=== PATIENT | female | born 1970 | race American Indian/Alaskan Native ===

== ENCOUNTER 2024-07-13 07:58 | Outpatient (AMB) | payer OTHER, SELFPAY ==
--- NOTE | 2024-07-12 15:51 | A.OFFVIS_ITS ---
Vital Signs 07/13/24 08:04 Height 5 ft 2 in Weight 147 lb 14.883 oz BMI 27.1 BP 120/70 Blood Pressure Location Lt brachial Position Sitting Pulse 98 Pulse Source Pulse Oximeter Pulse Oximetry (%) 98 Oxygen Delivery Method Room Air Intake Visit Reasons: RA/MR Recmerissa/CM Intake Note: Patient presents? today for RA follow up, she was last seen in the office on 11/24/[address] Campos. Patient is requesting refill of Sulfasalazine today. Allergies Penicillins Allergy (Mild, Verified 07/12/24 16:01) Rash Medication List - Last Reconciled 07/13/24 by Jairo Campos MD calcium carbonate 600 mg PO DAILY [[facility] Vitamin 3 PO] cyclobenzaprine 5 mg PO BEDTIME docusate sodium 100 mg PO DAILY gabapentin 300 mg PO DAILY meloxicam 15 mg PO DAILY sulfasalazine 0.5 grams PO DAILY vitamin R43-omdhl acid 2,500-400 mcg tabs PO vitamin E-aloe vera ea topical wheat dextrin-calc glucon,lact 3 gram-300 mg/8.8 gram grams PO HPI HPI RA/MR Amina/CM: Details: No recent flares. Pain in soles of both feet started 1.5 weeks ago. Mother was in hospital last week and she was standing for prolonged periods of time. She feels pain when standing and walking. No recent infection. No recent fractures. Medications reviewed with patient. [facility] Medical History (Updated 07/13/24 @ 08:39 by Jairo Campos MD) Malignant glomus tumor Cervical carcinoma Colonic polyp Surgical History (Updated 07/12/24 @ 16:09 by Danitza Ridley CMA) History of partial hysterectomy Family History (Updated 07/12/24 @ 16:11 by Danitza Ridley CMA) Mother Osteoporosis Breast cancer Other Brainstem stroke syndrome Social History (Updated 07/12/24 @ 16:03 by Danitza Ridley CMA) Patient Tobacco Use Status: Former Tobacco user Review of Systems Const All systems reviewed & are unremarkable except as noted in HPI and below Physical Exam Vital Signs: Last Vital Signs Pulse 98 07/13/24 08:04 BP 120/70 07/13/24 08:04 Pulse Ox 98 07/13/24 08:04 Oxygen Delivery Method Room Air 07/13/24 08:04 BMI result Body Mass Index 27.1 Const Other: General: Comfortable CVS: RRR Respiratory: clear to auscultation bilaterally. Good respiratory effort Skin: No lesions seen MSK: Tender to palpate right 1st MTP. Bunions noted bilateral. Tender to palpate right dorsal midfoot with bony hypertrophy palpated. No MTP tenderness on left foot. No synovitis present of any joints. Good range of motion of upper extremity and lower extremity. Assessment & Plan Assessment & Plan (1) Rheumatoid arthritis: Comment: History seropositivity with positive rheumatoid factor 46 and anti CCP positive greater than 250. Previously treated with methotrexate 07/12/2024 to 10/12/2025 discontinued due to transaminitis. She has been on sulfasalazine from 10/12/2015 to present. In remission on sulfasalazine. Code(s): M06.9 - Rheumatoid arthritis, unspecified Category: Medical Qualifiers: Rheumatoid arthritis location: unspecified site Rheumatoid factor presence: with rheumatoid factor Qualified Code(s): M05.9 - Rheumatoid arthritis with rheumatoid factor, unspecified Plan: Labs for disease and drug monitoring ordered. She will need refill of sulfasalazine after lab results are back. We will send refill of sulfasalazine 500 mg twice a day Return to clinic in 3 months Immunizations are up-to-date with flu shot. She declined getting COVID-19 booster. (2) Other intermediate (current) drug therapy: Code(s): Z79.899 - Other intermediate (current) drug therapy Category: Medical Plan: See above (3) Foot pain: Comment: She has pain from bunions contributing. I suspect she has osteoarthritis affecting her midfoot contributed dorsal midfoot pain. We will obtain x-ray for further evaluation. Code(s): M79.673 - Pain in unspecified foot Category: Medical Qualifiers: Laterality: bilateral Qualified Code(s): M79.671 - Pain in right foot; M79.672 - Pain in left foot Plan: X-ray bilateral feet ordered She will take ibuprofen 600 mg today after lunch then another dose in the evening if needed if she has persistent pain. Continue to wear for supportive footwear (4) Osteopenia: Comment: On bone density 03/11/2015 with lowest T-score -1.1. She has previously been tasha ated with alendronate from 03/11/2015 to 03/11/2017. Bone density is overdue. Code(s): M85.80 - Other specified disorders of bone density and structure, unspecified site Category: Medical Qualifiers: Osteopenia location: unspecified Qualified Code(s): M85.80 - Other specified disorders of bone density and structure, unspecified site Plan: Bone density ordered Continue OTC calcium 600 mg daily and vitamin-D (5) Bunion of unspecified foot: Code(s): M21.619 - Bunion of unspecified foot Category: Medical Plan: See above Plan . Orders: Orders C Reactive Protein Today Z79.899 - Other terminal carman (current) drug therapy Complete Blood Count Auto Diff Today Z79.899 - Other terminal carman (current) drug therapy Creatinine Today Z79.899 - Other intermediate (current) drug therapy XR DEXA axial skeleton Today M85.80 - Other specified disorders of bone density and structure, unspecified site Calcium Today M85.80 - Other specified disorders of bone density and structure, unspecified site Albumin Level Today M85.80 - Other specified disorders of bone density and structure, unspecified site Vitamin D 25-OH Total Today M85.80 - Other specified disorders of bone density and structure, unspecified site Alanine Aminotransferase Today M06.9 - Rheumatoid arthritis, unspecified, M79.673 - Pain in unspecified foot, M85.80 - Other specified disorders of bone density and structure, unspecified site, Z79.899 - Other intermediate (current) drug therapy Aspartate Amino Transferase Today M06.9 - Rheumatoid arthritis, unspecified, M79.673 - Pain in unspecified foot, M85.80 - Other specified disorders of bone density and structure, unspecified site, Z79.899 - Other terminal carman (current) drug therapy Erythrocyte Sedimentation Rate Today Z79.899 - Other intermediate (current) drug therapy Hepatitis B,C Profile Today Z79.899 - Other terminal carman (current) drug therapy T Spot TB Today Z79.899 - Other terminal carman (current) drug therapy XR foot LT min 3V Today M79.673 - Pain in unspecified foot XR foot RT min 3V Today Z79.899 - Other intermediate (current) drug therapy Coding Level of Care Code Est Pt Level 5 (67099) Diagnoses Rheumatoid arthritis with positive rheumatoid factor, involving unspecified site M05.9 Rheumatoid arthritis location: unspecified site Rheumatoid factor presence: with rheumatoid factor Other intermediate (current) drug therapy Z79.899 Pain in both feet M79.671; M79.672 Laterality: bilateral Osteopenia, unspecified location M85.80 Osteopenia location: unspecified Bunion of unspecified foot M21.619
[2024-07-13 08:04] VITALS: BP 120/70; PULSE 98; O2SAT 98; BMI 27.1
== END 2024-07-13 08:34 | disposition home or self-care (01) ==
PROVIDERS: PCP Internal Medicine; Visit Provider Internal Medicine Rheumatology
DX: M05.9 Rheumatoid arthritis with rheumatoid factor, unspecified (principal); Z79.899 Other long term (current) drug therapy; M79.671 Pain in right foot; M79.672 Pain in left foot; M85.80 Other specified disorders of bone density and structure, unspecified site; M21.619 Bunion of unspecified foot
CPT/HCPCS: 99214

== ENCOUNTER 2024-07-19 13:11 | Outpatient (REF) | payer OTHER, SELFPAY ==
[2024-07-19 16:15] LABS: MANUAL DIFF FLAG NO
[2024-07-19 16:21] LABS: Basophils Percent Auto 0.5 % (0-2); Eosinophils Absolute Auto 0.2 X10*3/uL (0.0-0.4); Eosinophils Percent Auto 3.1 % (0-4); Hematocrit 40.2 % (37.0-47.0); Hemoglobin 13.4 g/dl (12.0-16.0); Imm Gran Abs Auto 0.02 X10*3/uL (0.00-0.03); Imm Gran Pct Auto 0.3 % (0.0-0.4); Lymphocytes Absolute Auto 1.8 X10*3/uL (1.2-4.9); Lymphocytes Percent Auto 30.8 % (20-40); Mean Corpuscular HGB Conc 33.3 g/dl (31.0-35.0); Mean Corpuscular Hemoglobin 30.6 pg (27.0-33.0); Mean Corpuscular Volume 91.8 fL (80.0-98.0); Mean Platelet Volume 10.8 fL (9.4-12.3); Monocytes Absolute Auto 0.4 X10*3/uL (0.1-1.2); Monocytes Percent Auto 6.1 % (2-11); Neutrophils Absolute Auto 3.5 x10*3/uL (2.0-8.3); Neutrophils Percent Auto 59.2 % (45-73); Platelet Count 201 X10*3/uL (160-400); Red Blood Count 4.38 X10*6/uL (4.20-5.50); Red Cell Distribution Width 12.1 % (11.0-16.0); White Blood Count 5.9 X10*3/uL (4.8-10.8)
[2024-07-19 16:42] LABS: Alanine Aminotransferase 35 U/L (0-31); Albumin Level 4.3 g/dL (3.5-5.0); Aspartate Amino Transferase 26 U/L (5-31); C Reactive Protein 0.75 mg/dL (< or = 0.50); Calcium 9.8 mg/dL (8.4-10.2); Estimated Glomerular Filt Rate 53
[2024-07-19 17:00] LABS: Vitamin D 25-OH Total 59.2 ng/mL (>30)
[2024-07-19 17:43] LABS: Erythrocyte Sedimentation Rate 16 MM/HR (0-20)
[2024-07-20 08:31] LABS: HBc Num1 0.05 S/CO (0.00-0.79); HBsAGNum1 0.58 S/CO (0.00-0.99); Hepatitis B Core Antibody Nonreactive (Nonreactive); Hepatitis B Surface Antigen Negative (Negative); ~HepC Num1 0.15 S/CO (0.00-0.79); ~Hepatitis B Surface Antibody NONREACTIVE (Nonreactive); ~Hepatitis C Antibody Nonreactive (Nonreactive)
== END 2024-07-19 13:12 | disposition home or self-care (01) ==
LOC: HO.HMGCX 13:11
PROVIDERS: PCP Internal Medicine; Visit Provider Internal Medicine Rheumatology
DX: M79.673 Pain in unspecified foot (principal); M06.9 Rheumatoid arthritis, unspecified; M85.80 Other specified disorders of bone density and structure, unspecified site; Z79.899 Other long term (current) drug therapy
CPT/HCPCS: 36415; 73630; 82040; 82306; 82310; 82565; 84450; 84460; 85025; 85652; 86140; 86704; 86706; 86803; 87340

== ENCOUNTER 2024-08-24 13:02 | Outpatient (AMB) | payer OTHER, SELFPAY ==
--- NOTE | 2024-08-24 13:18 | MHC.PC.OV ---
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 Intake Note: Pt is here today as a New Patient to est care/PE Allergies Penicillins Allergy (Mild, Verified 08/24/24 13:46) Rash Medication List - Last Reconciled 08/24/24 by Nneka Paredes MD calcium carbonate 600 mg PO DAILY [[facility]S Vitamin 3 PO] cyclobenzaprine 5 mg PO BEDTIME docusate sodium 100 mg PO DAILY gabapentin 300 mg PO DAILY magnesium aspart,citrate,oxide mg PO meloxicam 15 mg PO DAILY riboflavin (vitamin B2) 400 mg PO DAILY sulfasalazine 0.5 grams PO BID vitamin E-aloe vera ea topical Tobacco use date assessed: 08/24/24 Dental Screening Dental Screen Date: 08/24/24 Did you have a dental visit in the last 12 months?: Yes Did you have a dental problem in the last 6 months where you did not have access to dental care?: No Was dental information given to patient?: Patient has dentist HPI EDI PROGRAMMER Est Care HPI Details - The patient is a 53-year-old female here to establish care with new PCP , and for a physical exam.presenting - Has history of Cervical Cancer diagnosed approximately in 2009,s/p partial hysterectomy , with cervix removal. No subsequent Pap smears since 2009. - history of Colonic Adenomatous Polyp: Polyp removed in 2019 at [facility]. due for repeat colonoscopy, needs referral to a new GI clinic as previous physician is retiring. - Rheumatoid Arthritis: symptoms including neck and lower back pain. Under treatment with Sulfasalazine twice daily and Meloxicam as needed, followed by Dr. Campos at rheumatology clinic. - Osteopenia: Scheduled for a bone density test - Glomus Tumor: Non-cancerous tumor surgically removed around 7254-7515; no recurring issues noted. - Constipation: Managed with Docusate and Magnesium. - Fatty Liver: Identified in previous liver function tests. - Migraines: Family history present, patient takes Vitamin B2 and Magnesium for mild symptomatic relief. - COVID-19 vaccination series received in the past but has not yet had her COVID booster - Influenza vaccine currently up-to-date- Pneumonia vaccines: Received PCV13 and PPSV23 in 2014 and 2015. Shingles vaccine up-to-date - Recent mammogram performed in July at [facility] with normal results. [facility] Medical History (Updated 08/24/24 @ 14:01 by Nneka Paredes MD) Hx of cervical cancer Hx of adenomatous polyp of colon Malignant glomus tumor Cervical carcinoma Colonic polyp Surgical History (Updated 08/24/24 @ 13:56 by Nneka Paredes MD) History of partial hysterectomy Family History Mother Osteoporosis Breast cancer Other Brainstem stroke syndrome Social History Housing: House Patient Tobacco Use Status: Former Tobacco user e-Cigarette/Vaping Use: Never Used service: No Current occupational status: employed Cognitive needs: No Hearing needs: No Vision needs: Yes Female Reproductive History Menstrual Menopause type: surgical Questionnaire PHQ-9 Over the last 2 weeks, how often have you been bothered by any of the following problems? 1. Little interest or pleasure in doing things: not at all 2. Feeling down, depressed, or hopeless: not at all 3. Trouble falling or staying asleep, or sleeping too much: not at all 4. Feeling tired or having little energy: not at all 5. Poor appetite or overeating: not at all 6. Feeling bad about yourself - or that you are a failure or have let yourself or your family down: not at all 7. Trouble concentrating on things, such as reading the newspaper or watching television: not at all 8. Moving or speaking so slowly that other people could have noticed. Or the opposite - being so fidgety or restless that you have been moving around a lot more than usual: not at all 9. Thoughts that you would be better off or of hurting yourself in some way: not at all Total score: 0 Depression Screening Interpretation: Negative Depression Screening Done: Yes 58775 - PHQ-9 Billing: Yes Source: Developed by Drs. Brandon Turner, Leia Richardson, Tarun Barbosa and colleagues, with an educational bryant from [employer]. Thrive Questionnaire Date Thrive assessed: 08/24/24 I am a: Patient What is your living situation today?: I have a steady place to live Within the past 12 months, did the food you bought not last and you didn't have the money to get more?: Never true Within the past 12 months, did you worry whether your food would run out before you got money to buy more?: Never true Do you have trouble paying for medicines?: No Do you have trouble getting transportation to medical appointments?: No Do you have trouble paying your heating and electricity bill?: No Do you have trouble taking care of your child, family member or friend?: No Do you have trouble with day-to-day activities such as bathing, preparing meals, shopping, managing finances, etc.?: No Are you currently unemployed and looking for a job?: No Are you interested in more education?: No Please select the resources that you would like help with: None Currently or been in a relationship where the following occur: No concerns reported THRIVE Score: 0 AUDIT C Alcohol Use Questionnaire (AUDIT-C) 1. How often do you have a drink containing alcohol?: Never Total Score: 0 LISETTE-7 AMB Questionnaire LISETTE-7 Date LISETTE - 7 assessed: 08/24/24 Feeling nervous, anxious, or on edge: 0 = Not at all Not being able to stop or control worryin = Not at all Worrying too much about different things: 0 = Not at all Trouble relaxin = Not at all Being so restless that it is hard to sit still: 0 = Not at all Becoming easily annoyed or irritable: 0 = Not at all Feeling afraid as if something awful might happen: 0 = Not at all Total LISETTE-7 score (0-4 normal; 5-9 mild; 10-14 moderate; 15-21 severe): 0 Source: Developed by Drs. Brandon Turner, Leia Richardson, Tarun Barbosa and colleagues, with an educational bryant from [employer]. LISETTE-7 Assessment Billing LISETTE-7 Assessment Tool: LISETTE-7 Assessment 44316 Review of Systems Const Denies body aches, Denies fatigue, Denies fever(s), Reports headache(s) (Mild, occasional) and Denies weakness Eyes Details: [facility] Denies change in vision and Reports requires corrective lenses ENT Denies dizziness, Reports headache(s) (Mild, occasional), Denies nasal congestion and Denies sore throat Card Denies chest pain, Denies lightheadedness, Denies palpitations and Denies dyspnea Resp Denies chest congestion, Denies cough, Denies dyspnea and Denies wheezing GI Denies abdominal pain, Reports constipation (Managed with taking magnesium as needed) and Denies heartburn Denies hematuria, Denies urinary frequency, Denies dysuria and Denies urinary urgency Musc Details: posterior neck pain Skin/Breast Denies breast pain, Denies breast mass, Denies lesions and Denies rash Neuro Denies dizziness, Reports headache(s) (Mild, occasional) and Denies weakness Psych Reports no additional complaints Endo Denies fatigue, Denies polydipsia, Denies polyuria and Denies palpitations Tay/Lymph Denies easy bruising Aller/Immun Denies seasonal rhinorrhea and Denies wheezing Physical exam (Primary Care) Vital Signs: Last Vital Signs Pulse 84 08/24/24 13:19 BP 116/60 08/24/24 13:19 Pulse Ox 97 08/24/24 13:19 Oxygen Delivery Method Room Air 08/24/24 13:19 BMI result Body Mass Index 26.9 Tobacco/Smoking Status: Tobacco use Status Tobacco use date assessed 08/24/24 08/24/24 13:28 Patient Tobacco Use Status Former Tobacco user 08/24/24 13:28 e-Cigarette/Vaping Use Never Used 08/24/24 13:28 PHQ-9: PHQ-9 Score PHQ-9: Total score 0 08/24/24 14:03 Depression Screening Interpretation: Negative Thrive Assessment: Date of Thrive Assessment Date Thrive assessed 08/24/24 08/24/24 13:28 Currently or been in a relationship where the following occur: No concerns reported Advance Care Planning discussion: Completed/Scanned Date of discussion: 08/24/24 Who was present: patient Forms completed: Health Care Proxy Time spent: 16-45 minutes Actual minutes spent: 2 Const General: no acute distress and alert Orientation/consciousness: patient oriented x3 HENMT Head: Yes normocephalic Ears: external ears normal, TM's normal bilaterally and EAC's normal General nose exam: Normal external nose present and No nasal discharge present Face and sinus: Yes face symmetric Mouth: Normal oral and palatal mucosa present, tongue normal, oropharynx normal and moist mucous membranes Eyes General: appearance normal, both eyes and all related structures Conjunctivae: conjunctivae normal Sclerae: sclerae normal Pupils: Equal, round and reactive pupils present EOM: EOMs intact bilaterally Neck Neck: Yes full ROM, Yes no lymphadenopathy and Yes supple Thyroid: Thyroid normal Chest Breast/axilla palpation: normal palpation of the breasts Resp Effort & Inspection: normal respiratory effort and able to speak in complete sentences Auscultation: clear to auscultation bilaterally Cardio Rate: regular rate Rhythm: regular rhythm Heart sounds: S1 normal heart sound present and S2 normal heart sound present GI Palpation (GI): Soft to palpation, nontender, no guarding and no masses Auscultation: normal bowel sounds General: Yes no CVA tenderness and Yes deferred Back/Spine/Pelvis Back: no CVA tenderness and No back tenderness Cervical Spine: cervical muscular tenderness (Had a cervical muscle ) Skin General skin exam: no rashes or lesions noted Neuro General: patient oriented x3, gait normal, moves all extremities, Normal light touch and pain sensation, no focal motor deficits and CN's II-XI intact bilaterally Cranial nerves: Yes Equal, round and reactive pupils present Cognition (Neuro): normal cognition Gait exam (Neuro): Normal gait present Motor exam (neuro): 5/5 motor strength present throughout Extrem Other: Bilateral bunions present General: Yes normal to inspection, Yes full ROM, Yes no joint enlargement, Yes no pedal edema and Yes normal gait Psych Appearance: grossly normal and well kempt Mental Status: mental status grossly normal Speech and movement: Normal speech and movement present Affect: normal affect Attitude: cooperative Thought process: Normal thought process present Thought content: Normal thought content present Results Reviewed Results Reviewed: Name: Helen Gonsalves Age/Sex: 53/F : 1970 Unit#: [id number] Attend Dr: Jairo Campos MD Re07/19/24 Status: [facility]P [facility]: SPEC : [id number] FREDDIE: 07/19/24 STATUS: COMP REQ : [id number] RECD: 07/19/[address]: Jairo Campos MD COMP: 07/19/24 ENTERED: 07/19/[address] [facility] [address]: Nneka Paredes MD ORDERED: CBC Auto Diff Test Result Flag Reference WBC 5.9 4.8-10.8 X10*3/uL RBC 4.38 4.20-5.50 X10*6/uL HGB 13.4 12.0-16.0 g/dl HCT 40.2 37.0-47.0 % MCV 91.8 80.0-98.0 fL MCH 30.6 27.0-33.0 pg MCHC 33.3 31.0-35.0 g/dl RDW 12.1 11.0-16.0 % PLT 201 160-400 X10*3/uL MPV 10.8 9.4-12.3 fL Neut Pct Auto 59.2 45-73 % ImGran Pct Auto 0.3 0.0-0.4 % Lymp Pct Auto 30.8 20-40 % Crowley Pct Auto 6.1 2-11 % Eos Pct Auto 3.1 0-4 % Baso Pct Auto 0.5 0-2 % NRBC Pct Auto 0.0 0.0-0.2 /100WBC ANC Neut Abs # 3.5 2.0-8.3 x10*3/uL ImGran Abs Auto 0.02 0.00-0.03 X10*3/uL Lymph Abs Auto 1.8 1.2-4.9 X10*3/uL Crowley Abs Auto 0.4 0.1-1.2 X10*3/uL Eos Abs Auto 0.2 0.0-0.4 X10*3/uL Baso Abs Auto 0.0 0.0-0.2 X10*3/uL NRBC Abs Auto 0.000 0.0-0.012 X10*3/uL Name: Helen Gonsalves Age/Sex: 53/F : 1970 Unit#: [id number] Attend Dr: Jairo Campos MD Re07/19/24 Status: [facility]P [facility] Dis[facility]: SPEC : [id number] FREDDIE: 07/19/24 STATUS: COMP REQ : [id number] RECD: 07/19/24-[address]: Jairo Campos MD COMP: 07/19/24-1699 ENTERED: 07/19/24-13[address] [facility] [address]: Nneka Paredes MD ORDERED: Creat, CA, AST, ALT, C Reactive Prot, Alb, Vitamin D 25-OH Test Result Flag Reference Creat 1.08 0.5-1.4 mg/dL eGFR 53 Chronic Kidney Disease: Estimated GFR < 60 mL/min/1.73m2 Severe Kidney Disease: Estimated GFR < 15 mL/min/1.73m2 CA 9.8 8.4-10.2 mg/dL AST (GOT) 26 5-31 U/L ALT (GPT) 35 H 0-31 U/L CRP 0.75 H < or = 0.50 mg/dL Alb 4.3 3.5-5.0 g/dL Vit D 25-OH Tot 59.2 >30 ng/mL Health Based Reference Values* < 20 ng/mL Deficient 20-30 ng/mL Insufficient > 30 ng/mL Sufficient Coding Level of Care Code New Pt Prev Care 40-64y(77558) Diagnoses Annual visit for general adult medical examination with abnormal findings Z00.01 Rheumatoid arthritis with positive rheumatoid factor, involving unspecified site M05.9 Rheumatoid arthritis location: unspecified site Rheumatoid factor presence: with rheumatoid factor Osteopenia, unspecified location M85.80 Osteopenia location: unspecified Bunion of unspecified foot M21.619 Hx of adenomatous polyp of colon Z86.0101 Hx of cervical cancer Z85.41 Additional Codes Vital Signs *Quality* - Advance Care Planning discussion: Completed/Scanned ([id number]) Vital Signs *Quality* - Time spent: 16-45 minutes ([id number]) PHQ-9 - 68081 - PHQ-9 Billing: Yes ([id number]) LISETTE-7 Assessment Billing - LISETTE-7 Assessment Tool: LISETTE-7 Assessment 49943 ([id number]) Assessment & Plan Assessment & Plan (1) Annual visit for general adult medical examination with abnormal findings: Code(s): Z00.01 - Encounter for general adult medical examination with abnormal findings Plan: Will check appropriate labs. Recommended dental visit every 6 months and regular eye exams, at least every 2 years. Take adequate calcium in diet and vitamin-D 3 at 2000 IU per cap once a day, in addition to weight-bearing exercises to help maintain good muscle tone and weight control. Instructed to do self-breast exam, and continue with yearly mammogram, currently up-to-date, goes to [facility]. Up-to-date with her vaccinations but has not yet received the updated COVID booster (2) Rheumatoid arthritis: Comment: History seropositivity with positive rheumatoid factor 46 and anti CCP positive greater than 250. Previously treated with methotrexate 07/12/2024 to 10/12/2025 discontinued due to transaminitis. She has been on sulfasalazine from 10/12/2015 to present. In remission on sulfasalazine. Code(s): M06.9 - Rheumatoid arthritis, unspecified Category: Medical Qualifiers: Rheumatoid arthritis location: unspecified site Rheumatoid factor presence: with rheumatoid factor Qualified Code(s): M05.9 - Rheumatoid arthritis with rheumatoid factor, unspecified Plan: Currently followed by rheumatology clinic, on sulfasalazine and cyclobenzaprine as needed, (3) Osteopenia: Comment: On bone density 03/11/2015 with lowest T-score -1.1. She has previously been treated with alendronate from 03/11/2015 to 03/11/2017. Bone density is overdue. Code(s): M85.80 - Other specified disorders of bone density and structure, unspecified site Category: Medical Qualifiers: Osteopenia location: unspecified Qualified Code(s): M85.80 - Other specified disorders of bone density and structure, unspecified site Plan: Appointment has already been scheduled by her director radio for a repeat bone density scan scheduled for 09/15/24 (4) Bunion of unspecified foot: Code(s): M21.619 - Bunion of unspecified foot Category: Medical Plan: Followed by rheumatology clinic, currently asymptomatic (5) Hx of adenomatous polyp of colon: Code(s): Z86.0101 - Personal history of adenomatous and serrated colon polyps Category: Medical Plan: Referred to GI Clinic for a repeat screening colonoscopy (6) Hx of cervical cancer: Code(s): Z85.41 - Personal history of malignant neoplasm of cervix uteri Category: Medical Plan: Referred to OBGYN for follow-up needs pelvic exam due to positive history of cervical cancer Orders: Orders Comprehensive [place]. Panel Fast 08/26/24 E89.40 - Asymptomatic postprocedural ovarian failure, Z13.1 - Encounter for screening for diabetes mellitus, Z13.220 - Encounter for screening for lipoid disorders Lipid Panel 08/26/24 E89.40 - Asymptomatic postprocedural ovarian failure, Z13.1 - Encounter for screening for diabetes mellitus, Z13.220 - Encounter for screening for lipoid disorders Vitamin D 25-OH Total 08/26/24 E89.40 - Asymptomatic postprocedural ovarian failure, Z13.1 - Encounter for screening for diabetes mellitus, Z13.220 - Encounter for screening for lipoid disorders Referrals Gastroenterology Referral Z86.0101 - Personal history of adenomatous and serrated colon polyps BOX ORDER PERSON Referral Z85.41 - Personal history of malignant neoplasm of cervix uteri
[2024-08-24 13:19] VITALS: BP 116/60; PULSE 84; O2SAT 97; BMI 26.9
== END 2024-08-24 14:29 | disposition home or self-care (01) ==
PROVIDERS: PCP Internal Medicine; Visit Provider Internal Medicine
DX: Z00.01 Encounter for general adult medical examination with abnormal findings (principal); M05.9 Rheumatoid arthritis with rheumatoid factor, unspecified; M85.80 Other specified disorders of bone density and structure, unspecified site; M21.619 Bunion of unspecified foot; Z86.0101 Personal history of adenomatous and serrated colon polyps; Z85.41 Personal history of malignant neoplasm of cervix uteri

== ENCOUNTER → 2024-08-24 13:02 | Outpatient (BNVA) | payer OTHER, SELFPAY | PROVIDERS: PCP Internal Medicine; Visit Provider Internal Medicine | DX: Z00.01 Encounter for general adult medical examination with abnormal findings (principal); M05.9 Rheumatoid arthritis with rheumatoid factor, unspecified; M85.80 Other specified disorders of bone density and structure, unspecified site; M21.619 Bunion of unspecified foot; Z86.0101 Personal history of adenomatous and serrated colon polyps; Z85.41 Personal history of malignant neoplasm of cervix uteri; Z79.899 Other long term (current) drug therapy | CPT/HCPCS: 96127 ==

== ENCOUNTER 2024-08-26 08:38 | Outpatient (REF) | payer OTHER, SELFPAY ==
[2024-08-26 11:56] LABS: Alanine Aminotransferase 28 U/L (0-31); Albumin Level 4.4 g/dL (3.5-5.0); Alkaline Phosphatase 96 U/L (39-117); Anion Gap 9 (12-20); Aspartate Amino Transferase 22 U/L (5-31); Bilirubin Total 0.6 mg/dL (0.0-1.0); Blood Urea Nitrogen 14 mg/dL (9-16); Calcium 9.9 mg/dL (8.4-10.2); Carbon Dioxide 28 mmol/L (22-29); Chloride 110 mmol/L (96-108); Cholesterol 208 mg/dL (<200); Estimated Glomerular Filt Rate > 60; Glucose Fasting 115 mg/dL (60-99); HDL Cholesterol 48 mg/dL (>40); LDL Cholesterol Calculated 133 mg/dL (<100); Potassium 4.4 mmol/L (3.3-5.1); Sodium 143 mmol/L (135-145); Total Protein 7.5 g/dL (6.5-8.0); Triglycerides 138 mg/dL (<150)
[2024-08-26 12:13] LABS: Vitamin D 25-OH Total 71.9 ng/mL (>30)
== END 2024-08-26 08:39 | disposition home or self-care (01) ==
LOC: HO.HMGCLDS 08:38
PROVIDERS: PCP Internal Medicine; Visit Provider Internal Medicine
DX: Z13.220 Encounter for screening for lipoid disorders (principal); Z13.1 Encounter for screening for diabetes mellitus; E89.40 Asymptomatic postprocedural ovarian failure
CPT/HCPCS: 36415; 80053; 80061; 82306

== ENCOUNTER 2024-09-27 10:53 | Outpatient (REF) | payer OTHER, SELFPAY ==
--- NOTE | ~2024-09-27 | MM_ITS ---
EXAMINATION: DXA BONE DENSITY AXIAL HISTORY: Estrogen deficiency TECHNIQUE: Autrement (Hotel[employer]el) Dual energy absorptiometry (DEXA) of the lumbar spine, total left hip, and femoral neck was performed. COMPARISON: There are no prior studies for comparison. FINDINGS: The bone mineral density of the lumbar spine is 0.939 with a T-score of -2.0, and a Z-score of -1.4. The bone mineral density of the left total hip is 1.014 with a T-score of 0.1, and a Z-score of 0.6. The bone mineral density of the left femoral neck is 0.890 with a T-score of -1.1, and a Z-score of -0.2. FRACTURE RISK: The FRAX index suggests a risk of major osteoporotic fracture of 3.8%, and of hip fracture 0.2%. MM/XR DEXA axial skeleton IMPRESSION: Based on bone mineral density, and according to World Health Organization (WHO) criteria, the diagnosis is consistent with osteopenia. All bone density values are in grams per centimeter squared (g/cm2). Statistically, 68% of repeat scans fall within 1 SD (+/- 0.010 g/cm2 for AP spine L1-L4) and 1 SD (+/- 0.012 g/cm2 for femur total) FRAX is a trademark of the [employer]'s [place] [employer] Metabolic Bone Disease, a World Health Organization (WHO) Collaborating Center. Electronically signed by: Brandon Washburn MD 09/28/2024 08:09 AM MELONY
--- OUTSIDE RECORDS SUMMARY | 2024-09-27 12:11 | XMS_ITS | Encounter Summary ---
Author Organization [facility] Address [address] [place] [address] Care Team Providers Care Model Builder Name Role Phone Doyle Samuels MD Primary Care Provider Unavail able Linus Feng MD Primary Care Provider [phone] Doyle Samuels MD Primary Care Provider Unavail able Encounter Details Date Type Department Care Team Description 12/26/2013 Transfer Records Medical Records [address] [place] [id number] Abstract, Provider Social History Tobacco Use Types Packs/Day Years Used Date Smoking Tobacco: Never Alcohol Use Standard Drinks/Week Comments No 0 (1 standard drink = 0.6 oz pur e alcohol) Sex Assigned at Date Recorded Not on file Job Start Date Occupation Industry Not on file Not on file Not on file documented as of this encounter Plan of Treatment Not on file documented as of this encounter Visit Diagnoses Not on filedocumented in this encounter Care Teams Model Builder Relationship Specialty Start Date End Date Doyle Samuels MD PCP - General Internal Medicine 11/21/13 02/15/22 Linus Feng MD [address] [place] [address] PCP - General Internal Medicine 02/16/22 06/28/22 Doyle Samuels MD [address] [place] [address] PCP - General Internal Medicine 06/29/22 documented as of this encounter
--- OUTSIDE RECORDS SUMMARY | 2024-09-27 12:11 | XMS_ITS | Encounter Summary ---
Author Organization [facility] Address [address] [place] [address] Care Team Providers Care Agile Scrum Coach Name Role Phone Doyle Samuels MD Primary Care Provider Unavail able Linus Feng MD Primary Care Provider [phone] Doyle Samuels MD Primary Care Provider Unavail able Encounter Details Date Type Department Care Team Description 07/10/2016 [facility] Medical Records [address] [place] [id number] Elvis Pozo MD Social History Tobacco Use Types Packs/Day Years Used Date Smoking Tobacco: Former Cigarettes 0.2 5 Smokeless Tobacco: Never Alcohol Use Standard Drinks/Week Comments Yes 0 (1 standard drink = 0.6 oz pur e alcohol) socially Sex Assigned at Date Recorded Not on file Job Start Date Occupation Industry Not on file Not on file Not on file documented as of this encounter Plan of Treatment Not on file documented as of this encounter Visit Diagnoses Not on filedocumented in this encounter Care Teams Agile Scrum Coach Relationship Specialty Start Date End Date Doyle Samuels MD PCP - General Internal Medicine 11/21/13 02/15/22 Linus Feng MD [address] [place] [address] PCP - General Internal Medicine 02/16/22 06/28/22 Doyle Samuels MD [address] [place] [address] PCP - General Internal Medicine 06/29/22 documented as of this encounter
--- OUTSIDE RECORDS SUMMARY | 2024-09-27 12:11 | XMS_ITS | Encounter Summary ---
Author Organization [facility]ande [email or web address] [facility] Address [address] [place] [address] Care Team Providers Care Dye Line Operator Name Role Phone Doyle Samuels MD Primary Care Provider Unavail able Linus Feng MD Primary Care Provider [phone] Doyle Samuels MD Primary Care Provider Unavail able Encounter Details Date Type Department Care Team Description 01/09/2014 Transfer Records Medical Records [address] [place] [id number] Abstract, Provider Social History Tobacco Use Types [...] on filedocumented in this encounter Care Teams Dye Line Operator Relationship Specialty Start Date End Date Doyle Samuels MD PCP - General Internal Medicine 11/21/13 02/15/22 Linus Feng MD [address] [place] [address] PCP - General Internal Medicine 02/16/22 06/28/22 Doyle Samuels MD [address] [place] [address] PCP - General Internal Medicine 06/29/22 documented as of this encounter
--- OUTSIDE RECORDS SUMMARY | 2024-09-27 12:11 | XMS_ITS | Clinical Summary ---
Author Organization [facility] [facility] Address [address] [place] [address] Care Team Providers Care Coat Presser Name Role Phone Doyle Samuels MD Primary Care Provider Unavail able Allergies Active Allergy Reactions Severity Noted Date Comments Penicillins Rash/Dermatitis 11/28/2013 Medications Medication Sig Dispensed Refills Start Date End Date Status Flunisolide 25 MCG/ACT (0.025%) Solution USE 2 SPRAYS BY NASAL DAILY 1 Bottle 5 01/15/2016 Active Calcium Carbonate (CALCIUM 600 OR)Indications:Rheu matoid arthritis involving multiple sites with positive rheumatoid factor (HCC),Encounter for monitoring sulfasalazine therapy Take by mouth daily. 0 Active vitamin E 400 units capsule Take 1 Cap by mouth daily. 90 Cap 3 05/12/2019 Active Cholecalciferol (VITAMIN D) 1000 units Tab Take 1 Tab by mouth daily. 90 Tab 0 05/08/2020 Active [place] 450 MG Cap Take by mouth daily. 0 Active sulfaSALAzine (AZULFIDINE) 500 MG tabletIndications:R heumatoid arthritis involving multiple sites with positive rheumatoid factor (HCC) Take 1 tablet by mouth 2 Times Daily. 180 tablet 0 09/30/2021 Active cyclobenzaprine (FLEXERIL) 5 MG tablet Take 1-2 Tablets by mouth 3 times daily as needed for Muscle spasms. 30 tablet 3 09/30/2021 Active Multiple Vitamin (Daily-Mary Multivitamin) Tab Take 1 tablet by mouth daily. 90 tablet 1 09/30/2021 Active polyethylene glycol (MiraLax) 17 GM/SCOOP powder Take 17 g by mouth every 48 hours as needed for Constipation for up to 3 days. May repeat dose as needed 527 g 0 09/30/2021 Active meloxicam (MOBIC) 15 MG tablet TAKE 1 TABLET BY MOUTH EVERY DAY NEEDED FOR PAIN 90 Tablet 1 12/22/2021 Active Active Problems Problem Noted Date History of COVID-19 10/22/2020 Overview: 10/13; 09/13 Osteopenia 01/11/2019 Overview: DEXA T scores: 01/08: hip -1.6 LS spine -1.0 03/06: hip 0.2. LS spine -1.1 Alendronate 03/06-03/08. NAFLD (nonalcoholic fatty liver disease) 01/18/2018 Overview: Via contrast chest CT 01/11/18. Also seen on F/U abdominal u/s Chronic constipation 12/16/2017 Extensor tenosynovitis of wrist, right 1 09/27/2016 Rheumatoid arthritis 05/22/2014 Overview: RF and CCP positive Methotrexate June 2014 through September 2015 -stopped because of LFT elevations. Sulfasalazine from September 2015 to present. History of cervical cancer 01/02/2014 Overview: Stage I; treated with surgery only; treated ~ 2005 Depression 11/28/2013 Carpal tunnel syndrome 11/28/2013 Chronic pain 11/28/2013 Resolved Problems Problem Noted Date Resolved Date Pulmonary parenchymal nodules 3.4 mm 3.4 mm post erior LLL 01/18/2018 05/12/2019 Overview: Via contrast CT 01/11/18. F/U nonenhanced CT is optional in 12 months - ordered Abnormal CXR 12/22/17 12/23/2017 02/04/2018 Overview: Prominent convexity aortic-pulmonary window unchanged appearance from 05/22/2014 radiograph with differential provided in the report. Contrast-enhanced chest CT could be considered to exclude significant vascular or other mediastinal pathology (ordered on 12/23/17) Right hip pain 10/25/2017 10/05/2021 Encounter for monitoring sulfasalazine therapy 0 10/25/2017 09/30/2021 Overweight 11/29/2013 10/06/2017 Immunizations Name Administration Dates Next Due COVID-19 (Moderna) PT Reported 08/31/2021,2020,12/17/2020 DTP 08/09/1982, 6,08/11/1971,06/11 Hepatitis B > 19yrs 07/15/2015,02/11/2015,2014 Influenza (> 6 Months) 07/03/2016,05/27/2015, Influenza Vaccine-preservati ve Free-quadrivalent 4 Years 07/11/2021,05/16/2020,05/08/2019,06/06 MMR (Rzcjswo-Ahplr-Xgihumy) 07/07/1985 PPD-RBMG 12/31/2014 Pneumoccoccal(Adult) Polysac charide PPSV23 2014 Pneumococcal Conjugate PCV-13 11/27/2015 Polio (OPV) 12/06/1987, 2,08/11/1971,06/21 Shingrix (Recombinant zoster vaccine) 09/30/2021 ,02/17/2021 TD (STATE SUPPLIED FOR ADULT S AND CHILDREN) 06/08/1986 Tdap 02/19/2014 Family History Medical History Relation Name Comments Glaucoma Aunt CA Esophageal Maternal Grandfather Diabetes Maternal Grandmother CA Breast Mother CAD Mother Glaucoma Mother Stroke Mother x3 Strabismus Other lazy eye cousin and grand daughter Blindness Negative Hx CA Colon Negative Hx CA Ovarian Negative Hx Cataract Negative Hx Hypertension Negative Hx Macular Degeneration Negative Hx Relation Name Status Comments Aunt Maternal Grandfather Maternal Grandmother Mother Alive Other Social History Tobacco Use Types Packs/Day Years Used Date Smoking Tobacco: Former Cigarettes 0.2 5 Smokeless Tobacco: Never Alcohol Use Standard Drinks/Week Comments Yes 0 (1 standard drink = 0.6 oz pur e alcohol) socially Sex Assigned at Date Recorded Not on file Job Start Date Occupation Industry Not on file Not on file Not on file Last Filed Vital Signs Vital Sign Reading Time Taken Comments Blood Pressure 109/67 03/13/2022 3:09 PM EDT Pulse 89 03/13/2022 3:09 PM EDT Temperature 36.3 ??C (97.3 ??F) 07/11/2021 4:00 PM ES T Respiratory Rate 16 09/30/2021 4:09 PM EST Oxygen Saturation 99% 06/19/2020 2:54 PM EDT Inhaled Oxygen Concentration - - Weight 65.8 kg (145 lb) 03/13/2022 3:09 PM EDT Height 157.5 cm (5' 2 ) 03/13/2022 3:09 PM EDT Body Mass Index 26.52 03/13/2022 3:09 PM EDT Plan of Treatment Health Maintenance Due Date Last Done Comments BASELINE HEALTH EXAM 40-64 09/30/202309/30, 05/16/2020, 05/12/2019, Additional history exists DTAP/TDAP/TD (7 - Td or Tdap) 02/20/2024, 06/08/1986, 08/09/1982, Additional history exists Covid-19 Vaccine (2022- 4 season) 2024 08/31/2021, 01/14/2021, 12/17/2020 INFLUENZA (#1) 2024 07/11/2021, 04/24, 05/08/2019, Additional history exists MAMMOGRAM 07/05/2024 07/05/2023, 05/24, 06/13/2022, Additional history exists BMI CHECK/ADVISE 08/23/2024 03/13/2022, , 09/30/2021, Additional history exists CERVICAL CANCER SCREENING 03/13/20252021, 05/04/2019, 01/01/2014, Additional history exists CHOLESTEROL SCREENING 05/16/2025 05/16/2020 , 10/06/2017, 10/06/2017, Additional history exists COLON CANCER SCREENING 07/10/2025 0 (Completed), 07/10/2020 PNEUMOCOCCAL VACCINE FOR HIG H RISK PATIENTS (#1) 11/13/2035 11/27/2015, 2014 SHINGLES VACCINE Completed 09/30/2021, 02/17/2021 Care Teams Coat Presser Relationship Specialty Start Date End Date Doyle Samuels MD PCP - General Internal Medicine 06/29/22
--- OUTSIDE RECORDS SUMMARY | 2024-09-27 12:11 | XMS_ITS | Encounter Summary ---
Author Organization [facility] [employer] [facility] Address [address] [place] [address] Care Team Providers Care Oyster Harvester Name Role Phone Doyle Samuels MD Primary Care Provider Unavail able Linus Feng MD Primary Care Provider [phone] Doyle Samuels MD Primary Care Provider Unavail able Reason for Visit * Reason Onset Date Comments Testing 10/01/2020 [facility] Encounter Details Date Type Department Care Team Description 10/01/2020 Telephone Medicine/Pediatrics - [address] [phone] Doyle Samuels MD Testing ([facility] ) Social History Tobacco Use Types Packs/Day Years Used Date Smoking Tobacco: Former Cigarettes 0.2 5 Smokeless Tobacco: Never Alcohol Use Standard Drinks/Week Comments Yes 0 (1 standard drink = 0.6 oz pur e alcohol) socially Sex Assigned at Date Recorded Not on file Job Start Date Occupation Industry Not on file Not on file Not on file COVID-19 Exposure Response Date Recorded In the last month, have you been in contact with someone who was confirmed or suspected to have Coronavirus / COVID-19? Unable to assess 10/01/2020 1:54 PM EST documented as of this encounter Miscellaneous Notes * Telephone Encounter - Fanny Patel - 10/01/2020 3:09 PM EST Call placed to [facility] Covid Testing facility. Patient info confirmed: Appt scheduled 10-02-20 at 11:45am at [address] [place] [address] Orders hand faxed to [phone] documented in this encounter Plan of Treatment Not on file documented as of this encounter Visit Diagnoses Not on filedocumented in this encounter Care Teams Oyster Harvester Relationship Specialty Start Date End Date Doyle Samuels MD PCP - General Internal Medicine 11/21/13 02/15/22 Linus Feng MD [address] [place] [address] PCP - General Internal Medicine 02/16/22 06/28/22 Doyle Samuels MD [address] [place] [address] PCP - General Internal Medicine 06/29/22 documented as of this encounter
--- OUTSIDE RECORDS SUMMARY | 2024-09-27 12:11 | XMS_ITS | Clinical Summary ---
Author Organization [facility] [address] [place] [address] [place] [phone] Phone Care Team Providers Care Fish Hatchery Laborer Name Role Phone Nneka Paredes MD Primary Care Provider Encounters Date Type Department Care Team Description 07/26/2024 7:17 AM EST - 07/26/2024 11:59 PM [facility] Hospital Encounter Radiology Department - [address] [phone] Encounter for screening mammogram for breast cancer Discharge Disposition: Home or Self Care from Last 3 Months Surgical History Surgery Date Site/Laterality Comments HYSTERECTOMY PROCEDURE: HISTORICAL HYSTERECTOMY; COMMENT: cancer of cervix OTHER SURGICAL HISTORY 04/16/14 Left PROCEDURE: ---- OTHER ----; COMMENT: glomus tumor L thumbnail COLONOSCOPY 07/10/2020 PROCEDURE: HISTORICAL COLONOSCOPY; COMMENT: rectal polyp - tubulovillous adenoma Medical History Medical History Date Comments Other specified personal his tory presenting hazards to health(V15.89) DX:Other specifie d personal history presenting hazards to health(V15.89); COMMENT: JOAQUIM 1 Anxiety state, unspecified DX:An xiety state, unspecified; COMMENT: depression Osteopenia 01/11/2019 DX:Osteopenia; C OMMENT: DEXA T scores: 01/08: hip -1.6 LS spine -1.0 03/06: hip 0.2. LS spine -1.1 Family History Medical History Relation Name Comments Glaucoma Aunt Esophageal cancer Maternal Grandfather Diabetes Maternal Grandmother Breast cancer Mother Coronary artery disease Mother Glaucoma Mother Stroke Mother x3 Strabismus Other lazy eye cousin and grand daughter Blindness Neg Hx Cataracts Neg Hx Colon cancer Neg Hx Hypertension Neg Hx Macular degeneration Neg Hx Ovarian cancer Neg Hx Relation Name Status Comments Aunt Maternal Grandfather Maternal Grandmother Mother Alive Other Social History Tobacco Use Types Packs/Day Years Used Date Smoking Tobacco: Former Cigarettes Smokeless Tobacco: Never Alcohol Use Standard Drinks/Week Comments Yes 0 (1 standard drink = 0.6 oz pur e alcohol) Sex and Gender Information Value Date Recorded Sex Assigned at Not on file Gender Identity Not on file Sexual Orientation Not on file Job Start Date Occupation Industry Not on file Not on file Not on file Obstetrics History Para Term AB IAB SAB Ectopic Multiple Livin g Live Births 2 2 2 2 Date Outcome GA Total Labor Labor/2nd/3rd Weight Sex Type Anes PTL Antonieta A1 A5 Name Clin Term Term Last Filed Vital Signs Vital Sign Reading Time Taken Comments Blood Pressure 109/67 03/13/2022 3:09 PM EDT Pulse 89 03/13/2022 3:09 PM EDT Temperature - - Respiratory Rate - - Oxygen Saturation - - Inhaled Oxygen Concentration - - Weight 65.8 kg (145 lb) 03/13/2022 3:09 PM EDT Height 157.5 cm (5' 2 ) 03/13/2022 3:09 PM EDT Body Mass Index 26.52 03/13/2022 3:09 PM EDT Plan of Treatment Health Maintenance Due Date Last Done Comments Hepatitis A Vaccines (1 of 2 - Risk 2-dose series) 1989 Colorectal Cancer Screening: Colonoscopy 08/01/2022 Depression Screening 08/01/2022 HIV Screening 08/01/2022 Hepatitis C Screening 08/01/2022 Social Influencers of Health Screening 08/01/2022 DTaP,Tdap,and Td Vaccines (7 - Td or Tdap) 02/20/2024 02/19/2014, 06/08/1986, 08/09/1982, Additional history exists COVID-19 Vaccine ( season) 2024 08/31/2021, 01/14/2021, 12/17/2020 Cervical Cancer Screening: Pap Smear 03/13/2025 03/13/2022, 05/04/2019 Breast Cancer Screening 07/26/2026 07/26/20 24, 07/05/2023, 06/19/2023, Additional history exists MMR Vaccines Completed 07/07/1985 IPV Vaccines Completed 12/06/1987, 07/23, 08/11/1971, Additional history exists Hepatitis B Vaccines Completed 07/15/2015, 02/11/2015, 01/02/2015 Pneumococcal Vaccine: Pediatrics (0 to 5 Years) and At-Risk Patients (6 to 64 Years) Aged Out 11/27/2015, 2014 No longer eligibl e based on patient's age to complete this topic Zoster Vaccines Completed 09/30/2021, 02/17/2021 Influenza Vaccine Completed 06/06/2024, , 06/26/2022, Additional history exists HIB Vaccines Aged Out No longer eligi ble based on patient's age to complete this topic HPV Vaccines Aged Out No longer eligi ble based on patient's age to complete this topic Meningococcal ACWY Vaccine Aged Out N o longer eligible based on patient's age to complete this topic RSV Immunization Patients Under 20 months Aged Out No longer eligible based on patient's age to complete this topic Varicella Vaccines Aged Out No longer eligible based on patient's age to complete this topic Procedures Procedure Name Priority Date/Time Associated Diagnosis Comments MG MAMMO DIGITAL SCREENING W ABRAHAN BILAT Routine 07/26/2024 7:48 AM EST Encounter for screening mammogram for breast cancer PAP SMEAR Routine 03/13/2022 from Last 3 Months or Most Recently Relevant to Health Maintenance Results * MG Mammo Digital Screening w Abrahan bilat (07/26/2024 7:48 AM EST) Anatomical Region Laterality Modality Breast Bilateral Mammography 07/26/2024 1:47 PM EST Impressions 07/26/2024 1:51 PM EST No mammographic evidence for malignancy. BI-RADS CATEGORY: 1 - NEGATIVE RECOMMENDATION: Screening bilateral mammogram is recommended in 1 year. Mammo Location: [facility], [address] [place] [address], [id number], . -------- FINAL REPORT -------- Dictated By: Deanna Hernandez Dictated Date: 07/26/2024 13:47 ET Assigned Physician: Deanna Hernandez Reviewed and Electronically Signed By: Deanna Hernandez Signed Date: 07/26/2024 13:51 ET Workstation ID: [id number] Transcribed By: Self Edit Transcribed Date: 07/26/2024 13:47 ET Narrative 07/26/2024 1:51 PM EST Bilateral screening mammogram. CLINICAL: 53 years old, Female, routine annual exam. COMPARISON: Prior screening mammograms, latest from ??06/19/2023 and 07/09/2023 ?? TECHNIQUE: Bilateral MLO and CC views were obtained digitally with 3-D mammogram (digital breast tomosynthesis). Computer-aided detection was utilized in evaluation of this exam (CAD). FINDINGS: There is no evidence of suspicious mass or architectural distortion. ??No worrisome calcifications are evident. ??There has been no significant change from prior exam(s). ?? BREAST DENSITY: C - The breasts are heterogeneously dense which may obscure small masses. Procedure Note Deanna Hernandez MD - 07/26/2024 Bilateral screening mammogram. CLINICAL: 53 years old, Female, routine annual exam. COMPARISON: Prior screening mammograms, latest from 06/19/2023 and07/09/2023 TECHNIQUE: Bilateral MLO and CC views were obtained digitally with 3-Dmammogram (digital breast tomosynthesis). Computer-aided detection wasutilized in evaluation of this exam (CAD). FINDINGS: There is no evidence of suspicious mass or architectural distortion. Noworrisome calcifications are evident. There has been no significantchange from prior exam(s). BREAST DENSITY: C - The breasts are heterogeneously dense which mayobscure small masses. IMPRESSION: No mammographic evidence for malignancy. BI-RADS CATEGORY: 1 - NEGATIVE RECOMMENDATION: Screening bilateral mammogram is recommended in 1 year. Mammo Location: [facility], [address] [place] [address], [id number], . -------- FINAL REPORT -------- Dictated By: Deanna Hernandez Dictated Date: 07/26/2024 13:47 ET Assigned Physician: Deanna Hernandez Reviewed and Electronically Signed By: Deanna Hernandez Signed Date: 07/26/2024 13:51 ET Workstation ID: [id number] Transcribed By: Self Edit Transcribed Date: 07/26/2024 13:47 ET Nneka Paredes MD IMG BI PROCEDURES * Pap smear (03/13/2022) 03/13/2022 Narrative HISTORICAL TESTING LAB RESULTING AGENCY - 03/20/2022 2:16 PM EDT [id number] THINPREP PAP, IMAGED: NEGATIVE FOR SQUAMOUS INTRAEPITHELIAL LESION AND MALIGNANCY . EBONY YOON(ASCP) (CASE ELECTRONICALLY SIGNED 03 20 2022) RESULT OF APTIMA HIGH RISK HPV ASSAY: HIGH RISK HPV: ??NEGATIVE (SEROTYPES 16,18,31,33,35,39,45,51,52,56,58,59,66,68) COMPLETED ON 2022-03-17 ADEQUACY: SATISFACTORY ENDOCERVICAL/TRANSFORMATION ZONE COMPONENT ABSENT. SOURCE: THINPREP PAP HPV ANY DX: ??REFLEX 16 AND 18, CERVICAL, IMAGED CLINICAL INFORMATION: HPV ANY DIAGNOSIS. HORMONES, PAP HX POSITIVE HYST 2008, [PARTIAL HYSTERECTOMY] [Z12.4] Veronica Lowry DO LAB CYTOLOGY ORDERAB LES HISTORICAL TESTING LAB RESULTING AGENCY from Last 3 Months or Most Recently Relevant to Health Maintenance Care Teams Fish Hatchery Laborer Relationship Specialty Start Date End Date Nneka Paredes MD PCP - General Internal Medicine 07/26/24
--- OUTSIDE RECORDS SUMMARY | 2024-09-27 12:11 | XMS_ITS | Encounter Summary ---
Author Organization [facility] Address [address] [place] [address] Care Team Providers Care Promotion Writer Name Role Phone Doyle Samuels MD Primary Care Provider Unavail able Linus Feng MD Primary Care Provider [phone] Doyle Samuels MD Primary Care Provider Unavail able Reason for Visit * Reason Onset Date Comments Medication 06/25/2020 Encounter Details Date Type Department Care Team Description 06/25/2020 Refill Gastroenterology - [place] [address] [facility] [address] [place] [address] Vicki Greenberg MD Medication Social History Tobacco Use Types Packs/Day Years [...] or suspected to have Coronavirus / COVID-19? No / Unsure 06/19/2020 2:49 PM EDT documented as of this encounter Plan of Treatment Not on file documented as of this encounter Visit Diagnoses Not on filedocumented in this encounter Care Teams Promotion Writer Relationship Specialty Start Date End Date Doyle Samuels MD PCP - General Internal Medicine 11/21/13 02/15/22 Linus Feng MD [address] [place] [address] PCP - General Internal Medicine 02/16/22 06/28/22 Doyle Samuels MD [address] [place] [address] PCP - General Internal Medicine 06/29/22 documented as of this encounter
--- OUTSIDE RECORDS SUMMARY | 2024-09-27 12:11 | XMS_ITS | Encounter Summary ---
Author Organization [facility] Address [address] [place] [address] Care Team Providers Care Psychologist Experimental Name Role Phone Doyle Samuels MD Primary Care Provider Unavail able Linus Feng MD Primary Care Provider [phone] Doyle Samuels MD Primary Care Provider Unavail able Reason for Referral * Radiology Services (Routine) - Closed Specialty Diagnoses / Procedures Referred By Katie shipley Referred To Contact Radiology Diagnoses Pulmonary nodule Procedures CAT SCAN OF CHEST NO CONTRAST Nicol Pina FNP [address] [place] [address] [place] [address] Referral ID Status Reason Start Date Expiration Date Visits Re quested Visits Authorized [id number] Closed 12/05/2018 02/02/2019 1 1 Encounter Details Date Type Department Care Team Description 01/18/2018 Orders Only Adult Medicine B - [address] [address] Nicol Pina FNP Pulmonary parenchymal nodules 3.4 mm 3.4 mm posterior LLL; Hepatic steatosis Social History Tobacco Use Types Packs/Day Years Used Date Smoking Tobacco: Never Smokeless Tobacco: Never Alcohol Use Standard Drinks/Week Comments No 0 (1 standard drink = 0.6 oz pur e alcohol) Sex Assigned at Date Recorded Not on file Job Start Date Occupation Industry Not on file Not on file Not on file documented as of this encounter Plan of Treatment Not on file documented as of this encounter Results * CAT SCAN OF CHEST NO CONTRAST (01/06/2019 3:56 PM EDT) 01/06/2019 6:13 PM EDT Impressions DANK [facility] OTHER EXTERNAL - 01/06/2019 6:21 PM EDT IMPRESSION: Stable tiny 2 pulmonary nodules as described. Stable minor paraseptal emphysema. No new findings. Narrative [facility] OTHER EXTERNAL - 01/06/2019 6:21 PM EDT CAT SCAN OF CHEST NO CONTRAST HISTORY: Pulmonary nodule. TECHNIQUE: Multiple axial images are obtained from the thoracic inlet through the upper abdomen. ? COMPARISON: Chest CT 01/11/2018.. RADIATION DOSAGE: ctdi 7.95 mGy. FINDINGS: ?? There is apical scarring. There is mild paraseptal emphysema on the left. 3 mm pulmonary nodule left lower lobe image 64/96 is stable. 2 mm pulmonary nodule right lower lobe image 215/286 is stable. There is no pleural effusion, infiltrate, pneumothorax, cardiomegaly, or pericardial effusion. No lymphadenopathy is seen. The partially visualized upper abdominal organs are unremarkable. No suspicious bone lesions seen. Procedure Note Taina Diaz MD - 01/06/2019 CAT SCAN OF CHEST NO CONTRAST HISTORY: Pulmonary nodule. TECHNIQUE: Multiple axial images are obtained from the thoracic inletthrough the upper abdomen. COMPARISON: Chest CT 01/11/2018.. RADIATION DOSAGE: ctdi 7.95 mGy. FINDINGS: There is apical scarring. There is mild paraseptal emphysema on the left. 3 mm pulmonary nodule left lower lobe image 64/96 is stable. 2 mm pulmonary nodule right lower lobe image 215/286 is stable. There is no pleural effusion, infiltrate, pneumothorax, cardiomegaly, orpericardial effusion. No lymphadenopathy is seen. The partially visualized upper abdominal organs are unremarkable. No suspicious bone lesions seen. IMPRESSION IMPRESSION: Stable tiny 2 pulmonary nodules as described. Stable minorparaseptal emphysema. No new findings. Nicol REAGAN CT SCANS [facility] OTHER EXTERNAL * US SOFT TISSUE ABDOMEN/BACK, LIMITED ABD (02/04/2018 9:11 AM EDT) 02/04/2018 12:2 3 PM EDT Impressions [facility] OTHER EXTERNAL - 02/04/2018 12:26 PM EDT IMPRESSION: Slight heterogeneous echotexture the liver, suggestive of possible hepatocellular disease. Otherwise, unremarkable ultrasound examination of the right upper quadrant. Narrative [facility] OTHER EXTERNAL - 02/04/2018 12:26 PM EDT ABDOMINAL ULTRASOUND-Limited History: ??Fatty liver. Chest CT 01/11/2018. Comparison: Chest CT 01/11/2018. FINDINGS: There is no evidence of cholelithiasis. The common bile duct is not dilated, measuring 2 mm. ??The gallbladder wall is not thickened. No pericholecystic fluid is seen. No ascites are seen. The visualized pancreas is normal in size and demonstrates normal echotexture. The liver measures 14.7 cm in length and demonstrates slightly heterogeneous echotexture. No focal lesions are seen in the liver and there is no evidence of intrahepatic ductal dilation. Normal hepatopedal flow is seen in the main portal vein. No evidence of hydronephrosis, mass, or calculus was seen in the right kidney. ??The right kidney measures 10.9 cm in greatest length. The visualized abdominal aorta and IVC are unremarkable. Procedure Note Taina Diaz MD - 02/04/2018 ABDOMINAL ULTRASOUND-Limited History: Fatty liver. Chest CT 01/11/2018. Comparison: Chest CT 01/11/2018. FINDINGS: There is no evidence of cholelithiasis. The common bile duct isnot dilated, measuring 2 mm. The gallbladder wall is not thickened. No pericholecysticfluid is seen. No ascites are seen. The visualized pancreas is normal in size and demonstrates normalechotexture. The liver measures 14.7 cm in length and demonstrates slightlyheterogeneous echotexture. No focal lesions are seen in the liver and there is no evidence ofintrahepatic ductal dilation. Normal hepatopedal flow is seen in the main portal vein. No evidence of hydronephrosis, mass, or calculus was seen in the rightkidney. The right kidney measures 10.9 cm in greatest length. The visualized abdominal aorta and IVC are unremarkable. IMPRESSION IMPRESSION: Slight heterogeneous echotexture the liver, suggestive of possiblehepatocellular disease. Otherwise, unremarkable ultrasound examination of the right upperquadrant. Nicol Pina STEEL MELTER ULTRASOUND [facility] OTHER EXTERNAL documented in this encounter Visit Diagnoses Diagnosis Pulmonary parenchymal nodules 3.4 mm 3.4 mm posterior LLL Solitary pulmonary nodule Hepatic steatosis Other chronic nonalcoholic liver disease Hepatic steatosis Other chronic nonalcoholic liver disease Pulmonary parenchymal nodules 3.4 mm 3.4 mm posterior LLL Solitary pulmonary nodule documented in this encounter Care Teams Psychologist Experimental Relationship Specialty Start Date End Date Doyle Samuels MD PCP - General Internal Medicine 11/21/13 02/15/22 Linus Feng MD [address] [place] [address] PCP - General Internal Medicine 02/16/22 06/28/22 Doyle Samuels MD [address] [place] [address] PCP - General Internal Medicine 06/29/22 documented as of this encounter
--- OUTSIDE RECORDS SUMMARY | 2024-09-27 12:11 | XMS_ITS | Encounter Summary ---
Author Organization [facility] Address [address] [place] [address] Care Team Providers Care Mass Communications Instructor Name Role Phone Doyle Samuels MD Primary Care Provider Unavail able Linus Feng MD Primary Care Provider [phone] Doyle Samuels MD Primary Care Provider Unavail able Encounter Details Date Type Department Care Team Description 01/05/2018 SCAN Medical Records [address] [place] [address] Elliot Damico MD [address] [place] [address] Social History Tobacco Use Types Packs/Day Years [...] on file documented as of this encounter Procedures Procedure Name Priority Date/Time Associated Diagnosis Comments OUTSIDE HOLTER MONITOR Routine 01/05/2018 documented in this encounter Results * OUTSIDE HOLTER MONITOR (01/05/2018) Provider Default CARDIOLOGY documented in this encounter Visit Diagnoses Not on filedocumented in this encounter Care Teams Mass Communications Instructor Relationship Specialty Start Date End Date Doyle Samuels MD PCP - General Internal Medicine 11/21/13 02/15/22 Linus Feng MD [address] [place] [address] PCP - General Internal Medicine 02/16/22 06/28/22 Doyle Samuels MD [address] [place] [address] PCP - General Internal Medicine 06/29/22 documented as of this encounter
--- OUTSIDE RECORDS SUMMARY | 2024-09-27 12:11 | XMS_ITS | Encounter Summary ---
Author Organization [facility] Address [address] [place] [address] Care Team Providers Care Vibrating Screen Operator Name Role Phone Doyle Samuels MD Primary Care Provider Unavail able Linus Feng MD Primary Care Provider [phone] Doyle Samuels MD Primary Care Provider Unavail able Encounter Details Date Type Department Care Team Description 11/30/2013 Release of Information Medical Records [address] [place] [address] Abstract, Provider Social History Tobacco Use Types [...] on filedocumented in this encounter Care Teams Vibrating Screen Operator Relationship Specialty Start Date End Date Doyle Samuels MD PCP - General Internal Medicine 11/21/13 02/15/22 Linus Feng MD [address] [place] [address] PCP - General Internal Medicine 02/16/22 06/28/22 Doyle Samuels MD [address] [place] [address] PCP - General Internal Medicine 06/29/22 documented as of this encounter
--- OUTSIDE RECORDS SUMMARY | 2024-09-27 12:11 | XMS_ITS | Encounter Summary ---
Author Organization [facility] Address [address] [place] [address] Care Team Providers Care Kitchen And Counter Worker Name Role Phone Doyle Samuels MD Primary Care Provider Unavail able Linus Feng MD Primary Care Provider [phone] Doyle Samuels MD Primary Care Provider Unavail able Reason for Visit * Reason Comments E-prescribe Rx Request Encounter Details Date Type Department Care Team Description 01/05/2016 Refill Rheumatology - [place] [address] [place] [address] Rashmi Lucia MD E-prescribe Rx Request Social History Tobacco Use Types Packs/Day Years Used Date Smoking Tobacco: Never Alcohol Use Standard Drinks/Week Comments No 0 (1 standard drink = 0.6 oz pur e alcohol) Sex Assigned at Date Recorded Not on file Job Start Date Occupation Industry Not on file Not on file Not on file documented as of this encounter Miscellaneous Notes * Telephone Encounter - Charu Garrett M.A. - 01/06/2016 10:55 AM EDT Component Value Date WBC 9.5 11/27/2015 HGB 13.4 11/27/2015 HCT 40.1 11/27/2015 MCV 91.3 11/27/2015 PLTCT 229 11/27/2015 Component Value Date ALB 3.9 10/23/2015 SGOT 15 10/23/2015 SGPT 20 10/23/2015 TBILI 0.2 10/23/2015 DBILI 0.1 07/26/2015 IBILI 0.3 07/26/2015 ALKPHOS 90 10/23/2015 TP 6.6 10/23/2015 * Telephone Encounter - Arlin Fernandez - 01/06/2016 10:23 AM EDT Patient would like script to be: E-PRESCRIBED/FAXED TO PHARMACY WHEN WAS THE PATIENT'S LAST APPOINTMENT IN ADULT MEDICINE? 12/11/15 WHEN WAS THE LAST TIME THE PATIENT SAW THEIR PCP? 10/23/15 Does patient have an upcoming appointment? Yes 03/25/16 (THE MEDICATION REQUESTED IS ON THE MED LIST ABOVE) All of the medications requested were on the CURRENT MEDS list Did you check the Pharmacy information above?: YES Patient wants: 30 -day supply Is this a mail order prescription request ? NO Patients current insurance carrier is: Payor: [facility] FFS / Plan: [employer] $25 [place] [id number] / ProductType: HMO [id number] documented in this encounter Plan of Treatment Not on file documented as of this encounter Visit Diagnoses Not on filedocumented in this encounter Care Teams Kitchen And Counter Worker Relationship Specialty Start Date End Date Doyle Samuels MD PCP - General Internal Medicine 11/21/13 02/15/22 Linus Feng MD [address] [place] [address] PCP - General Internal Medicine 02/16/22 06/28/22 Doyle Samuels MD [address] [place] [address] PCP - General Internal Medicine 06/29/22 documented as of this encounter
--- OUTSIDE RECORDS SUMMARY | 2024-09-27 12:11 | XMS_ITS | Encounter Summary ---
Author Organization [facility] [employer] [facility] Address [address] [place] [address] Care Team Providers Care Quarryman Name Role Phone Doyle Samuels MD Primary Care Provider Unavail able Linus Feng MD Primary Care Provider [phone] Doyle Samuels MD Primary Care Provider Unavail able Encounter Details Date Type Department Care Team Description 02/03/2022 Lumber Straightener Report Medical Records [address] [place] [address] Jairo Campos MD Social History Tobacco Use Types Packs/Day [...] on filedocumented in this encounter Care Teams Quarryman Relationship Specialty Start Date End Date Doyle Samuels MD PCP - General Internal Medicine 11/21/13 02/15/22 Linus Feng MD [address] [place] [address] PCP - General Internal Medicine 02/16/22 06/28/22 Doyle Samuels MD [address] [place] [address] PCP - General Internal Medicine 06/29/22 documented as of this encounter
--- OUTSIDE RECORDS SUMMARY | 2024-09-27 12:11 | XMS_ITS | Encounter Summary ---
Author Organization [facility] Address [address] [place] [address] Care Team Providers Care Hand Driller Name Role Phone Doyle Samuels MD Primary Care Provider Unavail able Linus Feng MD Primary Care Provider [phone] Doyle Samuels MD Primary Care Provider Unavail able Encounter Details Date Type Department Care Team Description 04/16/2014 [facility] Medical Records [address] [place] [address] Janina Larson MD [address] [place] [address] Social History Tobacco Use Types Packs/Day Years [...] on filedocumented in this encounter Care Teams Hand Driller Relationship Specialty Start Date End Date Doyle Samuels MD PCP - General Internal Medicine 11/21/13 02/15/22 Linus Feng MD [address] [place] [address] PCP - General Internal Medicine 02/16/22 06/28/22 Doyle Samuels MD [address] [place] [address] PCP - General Internal Medicine 06/29/22 documented as of this encounter
--- OUTSIDE RECORDS SUMMARY | 2024-09-27 12:11 | XMS_ITS | Encounter Summary ---
Author Organization [facility] Address [address] [place] [address] Care Team Providers Care Metal Polisher Name Role Phone Doyle Samuels MD Primary Care Provider Unavail able Linus Feng MD Primary Care Provider [phone] Doyle Samuels MD Primary Care Provider Unavail able Reason for Visit * Reason Onset Date Comments Vice President Client Services Feedback 04/02/2021 Mendel Avila In ternal Rheumatology Encounter Details Date Type Department Care Team Description 04/02/2021 Telephone Rheumatology - [place] [address] [place] [address] Joseph Avila PA Vice President Client Services Feedback (Mendel Avila, Internal Rheumatology) Social History Tobacco Use Types Packs/Day Years [...] encounter Miscellaneous Notes * Telephone Encounter - Hui Bradley - 04/02/2021 12:12 PM EDT Patient is all set. Referral is authorized and linked. * Telephone Encounter - Marsha Robles - 04/02/2021 11:23 AM EDT Request for a referral to a [facility] Specialist for a patient with a [facility] PCP. If patient does NOT have a [facility] PCP they must obtain a referral from their PCP before being seen-do not submit request to Referrals department-contact patient. Specialty patient is being referred to: Rheumatology Name of Specialist patient is seeing: Joseph Avila Reason/diagnosis for visit: arthritis involving multiple sites with positive rheumatoid factor Date of appoinment: 04/10/2021 If retro, date referral needs to start: N/A Doyle Samuels Payor: [facility]/[employer] FFS / Plan: [employer] $25 [place] [id number] / Product Type: [employer] [id number] documented in this encounter Plan of Treatment Not on file documented as of this encounter Visit Diagnoses Not on filedocumented in this encounter Care Teams Metal Polisher Relationship Specialty Start Date End Date Doyle Samuels MD PCP - General Internal Medicine 11/21/13 02/15/22 Linus Feng MD [address] [place] [address] PCP - General Internal Medicine 02/16/22 06/28/22 Doyle Samuels MD [address] [place] [address] PCP - General Internal Medicine 06/29/22 documented as of this encounter
--- OUTSIDE RECORDS SUMMARY | 2024-09-27 12:11 | XMS_ITS | Encounter Summary ---
Author Organization [facility] Address [address] [place] [address] Care Team Providers Care Sports Writer Name Role Phone Doyle Samuels MD Primary Care Provider Unavail able Linus Feng MD Primary Care Provider [phone] Doyle Samuels MD Primary Care Provider Unavail able Encounter Details Date Type Department Care Team Description 09/10/2014 Flooring Salesperson Report Medical Records [address] [place] [address] Jostin Petreson Social History Tobacco Use Types Packs/Day Years [...] on filedocumented in this encounter Care Teams Sports Writer Relationship Specialty Start Date End Date Doyle Samuels MD PCP - General Internal Medicine 11/21/13 02/15/22 Linus Feng MD [address] [place] [address] PCP - General Internal Medicine 02/16/22 06/28/22 Doyle Samuels MD [address] [place] [address] PCP - General Internal Medicine 06/29/22 documented as of this encounter
--- OUTSIDE RECORDS SUMMARY | 2024-09-27 12:11 | XMS_ITS | Encounter Summary ---
Author Organization [facility] Address [address] [place] [address] Care Team Providers Care Soil Sampler Name Role Phone Doyle Samuels MD Primary Care Provider Unavail able Linus Feng MD Primary Care Provider [phone] Doyle Samuels MD Primary Care Provider Unavail able Reason for Visit * Reason Onset Date Comments refill request 10/01/2020 Encounter Details Date Type Department Care Team Description 10/01/2020 Refill Rheumatology - [address] [address] Joseph Avila PA refill request Social History Tobacco Use Types Packs/Day Years [...] encounter Miscellaneous Notes * Telephone Encounter - Kyler Cornoa - 10/01/2020 1:25 PM EST Patient would like script to be: E-PRESCRIBED/FAXED TO PHARMACY WHEN WAS THE PATIENT'S LAST APPOINTMENT IN ADULT MEDICINE? 05/12/19 WHEN WAS THE LAST TIME THE PATIENT SAW THEIR PCP? Same as above Does patient have an upcoming appointment? No, please determine within Rheumatology if the patient needs top follow up. (THE MEDICATION REQUESTED IS ON THE MED LIST ABOVE) All of the medications requested were on the CURRENT MEDS list Did you check the Pharmacy information above?: YES Patient wants: 30 -day supply Is this a mail order prescription request ? NO If the refill is from a FAXED refill request what is the RX # listed on the fax? N/A Patients current insurance carrier is: Payor: [facility]/[employer] FFS / Plan: [employer] HOST $25 / Product Type: [employer] [id number] documented in this encounter Plan of Treatment Not on file documented as of this encounter Visit Diagnoses Diagnosis Rheumatoid arthritis involving multiple sites with positive rheumatoid factor (HCC) documented in this encounter Care Teams Soil Sampler Relationship Specialty Start Date End Date Doyle Samuels MD PCP - General Internal Medicine 11/21/13 02/15/22 Linus Feng MD [address] [place] [address] PCP - General Internal Medicine 02/16/22 06/28/22 Doyle Samuels MD [address] [place] [address] PCP - General Internal Medicine 06/29/22 documented as of this encounter
== END 2024-09-27 10:54 | disposition home or self-care (01) ==
LOC: HO.MAMMO 10:53
PROVIDERS: PCP Internal Medicine; Visit Provider Internal Medicine Rheumatology
DX: Z13.820 Encounter for screening for osteoporosis (principal); M85.852 Other specified disorders of bone density and structure, left thigh
CPT/HCPCS: 77080

== ENCOUNTER → 2024-09-27 11:30 | Outpatient (BNV) | payer OTHER, SELFPAY | PROVIDERS: PCP Internal Medicine; Visit Provider Radiology Diagnostic Radiology | DX: E28.39 Other primary ovarian failure (principal) | CPT/HCPCS: 77085 ==

== ENCOUNTER 2024-10-12 07:59 | Outpatient (AMB) | payer OTHER, SELFPAY ==
--- NOTE | 2024-10-12 08:01 | A.OFFVIS_ITS ---
Vital Signs 10/12/24 08:07 Height 5 ft 3 in Weight 146 lb 3 oz BMI 25.9 BP 90/66 Blood Pressure Location Lt brachial Position Sitting Pulse 87 Pulse Source Pulse Oximeter Pulse Oximetry (%) 99 Oxygen Delivery Method Room Air Intake Visit Reasons: Follow Up 6mo Intake Note: Patient presents today for RA follow up. Allergies Penicillins Allergy (Mild, Verified 10/12/24 08:01) Rash HPI HPI Follow Up 6mo: Details: She recently a febrile illness that lasted at least 4 days. She did not stop sulfasalazine. She feels well. She had left heel pain on Wednesday. Symptoms improved over time. She does not have any pain today. She does not self m edicate. She continues to take calcium and vitamin-D combination tablet and sulfasalazine. No joint swelling or stiffness. [facility] Medical History Hx of cervical cancer Hx of adenomatous polyp of colon Malignant glomus tumor Cervical carcinoma Colonic polyp Surgical History History of partial hysterectomy Family History Mother Osteoporosis Breast cancer Other Brainstem stroke syndrome Social History Housing: House Patient Tobacco Use Status: Former Tobacco user e-Cigarette/Vaping Use: Never Used service: No Current occupational status: employed Cognitive needs: No Hearing needs: No Vision needs: Yes Review of Systems Const All systems reviewed & are unremarkable except as noted in HPI and below Physical Exam Vital Signs: Last Vital Signs Pulse 87 10/12/24 08:07 BP 90/66 10/12/24 08:07 Pulse Ox 99 10/12/24 08:07 Oxygen Delivery Method Room Air 10/12/24 08:07 BMI result Body Mass Index 25.9 Const Other: General: Comfortable CVS: RRR Respiratory: clear to auscultation bilaterally. Good respiratory effort Skin: No lesions seen MSK: Bunions noted bilateral. Point tenderness of left heel at plantar aponeurosis. No MTP tenderness on left foot. No synovitis present of any joints. Good range of motion of upper extremity and lower extremity. Assessment & Plan Assessment & Plan (1) Rheumatoid arthritis: Comment: In remission on sulfasalazine. History seropositivity with positive rheumatoid factor 46 and anti CCP positive greater than 250. Previously treated with methotrexate 07/12/2024 to 10/12/2025 discontinued due to transaminitis. She has been on sulfasalazine from 10/12/2015 to present. History of cervical cancer. Code(s): M06.9 - Rheumatoid arthritis, unspecified Category: Medical Qualifiers: Rheumatoid arthritis location: unspecified site Rheumatoid factor presence: with rheumatoid factor Qualified Code(s): M05.9 - Rheumatoid arthritis with rheumatoid factor, unspecified Plan: Labs for drug monitoring on high-risk medication ordered Continue sulfasalazine 500 mg twice a day Return to clinic in 3 months (2) Other senior living (current) drug therapy: Code(s): Z79.899 - Other senior living (current) drug therapy Category: Medical Plan: See above (3) Osteopenia: Comment: On bone density 02/2015 with lowest T-score -1.1. She has previously been treated with alendronate from 03/11/2015 to 03/11/2017. Recent bone density 09/27/2024 reveals lowest T-score -2.0 lumbar spine, T-score-1.1 left femoral neck, T-score 0.1 total left hip. Bone density has worsened since 2014. Vit raygoza-D level was checked in 07/12/2024, which was 59. It was rechecked in August 2024, which was 71.9. Code(s): M85.80 - Other specified disorders of bone density and structure, unspecified site Category: Medical Qualifiers: Osteopenia location: unspecified Qualified Code(s): M85.80 - Other specified disorders of bone density and structure, unspecified site Plan: Labs to evaluate for secondary causes of osteopenia ordered She will continue to take calcium 600 mg and vitamin-D supplement daily. She will call office in report calcium and vitamin-D dose in her supplements. I may need to reduce her vitamin-D dose. Return to clinic in 3 months (4) Foot pain: Comment: Recently she has had pain in left heel from calcaneal spur seen on x-ray. We discussed conservative management. Code(s): M79.673 - Pain in unspecified foot Category: Medical Qualifiers: Laterality: bilateral Qualified Code(s): M79.671 - Pain in right foot; M79.672 - Pain in left foot Plan: Continue to wear for supportive footwear at work and at home. Try iigj-bre-rgftadw insoles for heel support She will take ibuprofen every 8 hours p.r.n. joint pain (5) Bunion of unspecified foot: Code(s): M21.619 - Bunion of unspecified foot Category: Medical Plan: See above Plan . Orders: Orders Aspartate Amino Transferase Today Z79.60 - correction (current) use of unspecified immunomodulators and immunosuppressants Creatinine Today Z79.60 - correction (current) use of unspecified immunomodulators and immunosuppressants Erythrocyte Sedimentation Rate Today Z79.899 - Other senior living (current) drug therapy C Reactive Protein Today Z79.899 - Other marine oil terminal superintendent (current) drug therapy TSH reflex Free T4 Today M85.80 - Other specified disorders of bone density and structure, unspecified site Parathyroid Hormone Intact Today M85.80 - Other specified disorders of bone density and structure, unspecified site Magnesium Today M85.80 - Other specified disorders of bone density and structu re, unspecified site Phosphorus Today M85.80 - Other specified disorders of bone density and structure, unspecified site Alanine Aminotransferase Today Z79.60 - exterminator (current) use of unspecified immunomodulators and immunosuppressants Complete Blood Count Auto Diff Today Z79.60 - correction (current) use of unspec ified immunomodulators and immunosuppressants Coding Level of Care Code Est Pt Level 4 (89824) Complex EM visit Add On G2211 Diagnoses Rheumatoid arthritis with positive rheumatoid factor, involving unspecified site M05.9 Rheumatoid arthritis location: unspecified site Rheumatoid factor presence: with rheumatoid factor Other senior living (current) drug therapy Z79.899 Osteopenia, unspecified location M85.80 Osteopenia location: unspecified Pain in both feet M79.671; M79.672 Laterality: bilateral Bunion of unspecified foot M21.619
--- OUTSIDE RECORDS SUMMARY | 2024-10-12 08:03 | XMS_ITS | Encounter Summary ---
Author Organization [facility] [employer] [facility] Address [address] [place] [address] Care Team Providers Care Validation Software Facilitator Name Role Phone Doyle Samuels MD Primary Care Provider Unavail able Linus Feng MD Primary Care Provider [phone] Doyle Samuels MD Primary Care Provider Unavail able Reason for Referral * Radiology Services (Routine) - Closed Specialty Diagnoses / Procedures Referred By Katie shipley Referred To Contact Radiology Diagnoses Pulmonary nodule Procedures CAT SCAN OF CHEST NO CONTRAST Nicol Pina FNP [address] [place] [address] [place] [address] Referral ID Status Reason Start Date Expiration Date Visits Re quested Visits Authorized [id number] Closed 12/05/2018 02/02/2019 1 1 Encounter Details Date Type Department Care Team Description 01/18/2018 Orders Only Adult Medicine B - [address] [address] Nicol Pina FNP Pulmonary parenchymal nodules 3.4 [...] examination of the right upperquadrant. Nicol Pina BOOSTER PUMP OPERATOR ULTRASOUND DANK CHANCE OTHER EXTERNAL documented in this encounter Visit Diagnoses Diagnosis Pulmonary parenchymal nodules 3.4 mm 3.4 mm posterior LLL Solitary pulmonary nodule Hepatic steatosis Other chronic nonalcoholic liver disease Hepatic steatosis Other chronic nonalcoholic liver disease Pulmonary parenchymal nodules 3.4 mm 3.4 mm posterior LLL Solitary pulmonary nodule documented in this encounter Care Teams Validation Software Facilitator Relationship Specialty Start Date End Date Doyle Samuels MD PCP - General Internal Medicine 11/21/13 02/15/22 Linus Feng MD [address] [place] [address] PCP - General Internal Medicine 02/16/22 06/28/22 Doyle Samuels MD [address] [place] [address] PCP - General Internal Medicine 06/29/22 documented as of this encounter
--- OUTSIDE RECORDS SUMMARY | 2024-10-12 08:03 | XMS_ITS | Encounter Summary ---
Author Organization [facility] [employer] [facility] Address [address] [place] [address] Care Team Providers Care Cleaning Porter Name Role Phone Doyle Samuels MD Primary Care Provider Unavail able Linus Feng MD Primary Care Provider [phone] Doyle Samuels MD Primary Care Provider Unavail able Encounter Details Date Type Department Care Team Description 12/26/2015 Associate Professor Computer Science Report Medical Records [address] [place] [address] Dannie Guerrero Social History Tobacco Use Types Packs/Day Years [...] on filedocumented in this encounter Care Teams Cleaning Porter Relationship Specialty Start Date End Date Doyle Samuels MD PCP - General Internal Medicine 11/21/13 02/15/22 Linus Feng MD [address] [place] [address] PCP - General Internal Medicine 02/16/22 06/28/22 Doyle Samuels MD [address] [place] [address] PCP - General Internal Medicine 06/29/22 documented as of this encounter
--- OUTSIDE RECORDS SUMMARY | 2024-10-12 08:03 | XMS_ITS | Encounter Summary ---
Author Organization [facility] [employer] [facility] Address [address] [place] [address] Care Team Providers Care Recreation Attendant Name Role Phone Doyle Samuels MD Primary Care Provider Unavail able Linus Feng MD Primary Care Provider [phone] Doyle Samuels MD Primary Care Provider Unavail able Reason for Visit * Reason Onset Date Comments TEST RESULTS 12/23/2017 Encounter Details Date Type Department Care Team Description 12/23/2017 Telephone Medicine/Pediatrics - [address] [phone] Doyle Samuels MD TEST RESULTS Social History Tobacco Use Types Packs/Day Years [...] encounter Miscellaneous Notes * Telephone Encounter - MERARY Tubbs - 12/23/2017 5:07 PM EDT I called mobile # - Fatoumata watkins up. Gave me a different # for Helen, . I explained cervical and CXR results. Will need chest CT. All questions answererd. * Telephone Encounter - Maryanen De Leon L.P.NKaiser - 12/23/2017 1:57 PM EDT Notes Recorded by MERARY Tubbs on 12/23/2017 at 12:58 PM I spoke with her daughter Elva (on VR), results given. Chest CT ordered. I spoke with pt who states her daughter Elva does not speak panamanian very well and Pt is worried because message was unclear to her. Please call pt. * Telephone Encounter - Simona Freddy - 12/23/2017 1:14 PM EDT Inform patient: ANY URGENT OR ABNORMAL RESULTS WIILL RESULT IN A CALL BACK TO THE PATIENT DIANA. Type of test: :Chest x-ray Date test was performed: 12/22/17 Where was the test performed: [facility] Who ordered this test?: MERARY Tubbs Is the doctor here today?: NO Can the message wait until the doctor returns?: NO IF PATIENT'S PCP IS NOT IN INSTRUCT PATIENT THAT THEY WILL RECEIVE A CALL BACK WHEN THE PCP IS IN THE OFFICE NEXT. documented in this encounter Plan of Treatment Not on file documented as of this encounter Visit Diagnoses Not on filedocumented in this encounter Care Teams Recreation Attendant Relationship Specialty Start Date End Date Doyle Samuels MD PCP - General Internal Medicine 11/21/13 02/15/22 Linus Feng MD [address] [place] [address] PCP - General Internal Medicine 02/16/22 06/28/22 Doyle Samuels MD [address] [place] [address] PCP - General Internal Medicine 06/29/22 documented as of this encounter
--- OUTSIDE RECORDS SUMMARY | 2024-10-12 08:03 | XMS_ITS | Encounter Summary ---
Author Organization [facility] [employer] [facility] Address [address] [place] [address] Care Team Providers Care Stenographic Court Reporter Name Role Phone Doyle Samuels MD Primary Care Provider Unavail able Linus Feng MD Primary Care Provider [phone] Doyle Samuels MD Primary Care Provider Unavail able Encounter Details Date Type Department Care Team Description 07/03/2016 Can Conveyor Feeder Report Medical Records [address] [place] [address] Jodie Sales MD [address] [place] [address] [address] [place] [address] Social History Tobacco Use Types Packs/Day Years [...] on filedocumented in this encounter Care Teams Stenographic Court Reporter Relationship Specialty Start Date End Date Doyle Samuels MD PCP - General Internal Medicine 11/21/13 02/15/22 Linus Feng MD [address] [place] [address] PCP - General Internal Medicine 02/16/22 06/28/22 Doyle Samuels MD [address] [place] [address] PCP - General Internal Medicine 06/29/22 documented as of this encounter
--- OUTSIDE RECORDS SUMMARY | 2024-10-12 08:03 | XMS_ITS | Encounter Summary ---
Author Organization [facility] [employer] [facility] Address [address] [place] [address] Care Team Providers Care Merchandise Clerk Name Role Phone Doyle Samuels MD Primary Care Provider Unavail able Linus Feng MD Primary Care Provider [phone] Doyle Samuels MD Primary Care Provider Unavail able Reason for Visit * Reason Onset Date Comments refill request 10/01/2020 Encounter Details Date Type Department Care Team Description 10/01/2020 Refill Rheumatology - [address] [address] Joseph Avila PA refill request Social History [...] Miscellaneous Notes * Telephone Encounter - Kyler Corona - 10/01/2020 1:25 PM EST Patient would [...] N/A Patients current insurance carrier is: Payor: [facility] FFS / Plan: [employer] HOST $25 / Product Type: [employer] [id number] documented in this encounter Plan of Treatment Not on file documented as of this encounter Visit Diagnoses Diagnosis Rheumatoid arthritis involving multiple sites with positive rheumatoid factor (HCC) documented in this encounter Care Teams Merchandise Clerk Relationship Specialty Start Date End Date Doyle Samuels MD PCP - General Internal Medicine 11/21/13 02/15/22 Linus Feng MD [address] [place] [address] PCP - General Internal Medicine 02/16/22 06/28/22 Doyle Samuels MD [address] [place] [address] PCP - General Internal Medicine 06/29/22 documented as of this encounter
--- OUTSIDE RECORDS SUMMARY | 2024-10-12 08:03 | XMS_ITS | Encounter Summary ---
Author Organization [facility] [employer] [facility] Address [address] [place] [address] Care Team Providers Care Applications Instructor Name Role Phone Doyle Samuels MD Primary Care Provider Unavail able Linus Feng MD Primary Care Provider [phone] Doyle Samuels MD Primary Care Provider Unavail able Encounter Details Date Type Department Care Team Description 02/21/2014 [facility] Medical Records [address] [place] [address] Vladislav Paige DO Social History Tobacco Use Types Packs/Day Years [...] on filedocumented in this encounter Care Teams Applications Instructor Relationship Specialty Start Date End Date Doyle Samuels MD PCP - General Internal Medicine 11/21/13 02/15/22 Linus Feng MD [address] [place] [address] PCP - General Internal Medicine 02/16/22 06/28/22 Doyle Samuels MD [address] [place] [address] PCP - General Internal Medicine 06/29/22 documented as of this encounter
--- OUTSIDE RECORDS SUMMARY | 2024-10-12 08:03 | XMS_ITS | Encounter Summary ---
Author Organization [facility] [employer] [facility] Address [address] [place] [address] Care Team Providers Care Physical Anthropologist Name Role Phone Doyle Samuels MD Primary Care Provider Unavail able Linus Feng MD Primary Care Provider [phone] Doyle Samuels MD Primary Care Provider Unavail able Encounter Details Date Type Department Care Team Description 04/16/2014 [facility] Medical Records [address] [place] [address] Janina Larson MD [address] [place] [address] Social History Tobacco Use Types Packs/Day Years [...] on filedocumented in this encounter Care Teams Physical Anthropologist Relationship Specialty Start Date End Date Doyle Samuels MD PCP - General Internal Medicine 11/21/13 02/15/22 Linus Feng MD [address] [place] [address] PCP - General Internal Medicine 02/16/22 06/28/22 Doyle Samuels MD [address] [place] [address] PCP - General Internal Medicine 06/29/22 documented as of this encounter
--- OUTSIDE RECORDS SUMMARY | 2024-10-12 08:03 | XMS_ITS | Clinical Summary ---
Author Organization [facility] [address] [place] [address] [place] [phone] Phone Care Team Providers Care Reimbursement Representative Name Role Phone Nneka Paredes MD Primary Care Provider Encounters Date Type Department Care Team Description 07/26/2024 7:17 AM EST - 07/26/2024 11:59 PM [facility] Hospital Encounter Radiology Department - [address] [phone] Encounter for screening mammogram for breast cancer [...] drink = 0.6 oz pur e alcohol) Comments No Sex and Gender Information Value Date Recorded Sex Assigned at Not on file Legal Sex Female 5:19 AM EST Gender Identity Not on file Sexual Orientation Not on file Obstetrics History Para Term [...] of 2 - Risk 2-dose series) 1989 Pneumococcal Vaccine: 50+ Years (3 of 3 - PCV20 or PCV21) 11/26/2020 11/27/2015, 2014 Colorectal Cancer Screening: Colonoscopy 08/01/2022 Depression Screening 08/01/2022 HIV Screening 08/01/2022 Hepatitis C Screening 08/01/2022 Social Influencers of Health Screening 08/01/2022 DTaP,Tdap,and Td Vaccines (7 - Td or Tdap) 02/20/2024 02/19/2014, 06/08/1986, 08/09/1982, Additional history exists COVID-19 Vaccine ( season) 2024 08/31/2021, 01/14/2021, 12/17/2020 Cervical Cancer Screening: Pap Smear 03/13/2025 03/13/2022, 05/04/2019 Breast Cancer Screening 07/26/2026 07/26/20, 07/05/2023, 06/19/2023, Additional history exists MMR Vaccines [...] patient's age to complete this topic Meningococcal B Vacine Aged Out No lo nger eligible based on patient's age to complete [...] is recommended in 1 year. Mammo Location: [facility], [address] [place] [address], [address], . -------- FINAL REPORT -------- Dictated By: Deanna Hernandez Dictated Date: 07/26/2024 13:47 ET Assigned Physician: Deanna Hernandez Reviewed and Electronically Signed By: Deanna Hernandez Signed Date: 07/26/2024 13:51 ET Workstation ID: [id number] Transcribed By: Self Edit Transcribed Date: 07/26/2024 [...] is recommended in 1 year. Mammo Location: [facility], [address] [place] [address], [id number], . -------- FINAL REPORT -------- Dictated By: Deanna Hernandez Dictated Date: 07/26/2024 13:47 ET Assigned Physician: Deanna Hernandez Reviewed and Electronically Signed By: Deanna Hernandez Signed Date: 07/26/2024 13:51 ET Workstation ID: [id number] Transcribed By: Self Edit Transcribed Date: 07/26/2024 13:47 ET us Nneka Paredes MD IMG BI PROCEDURES Final Res ult * Pap smear (03/13/2022) 03/13/2022 Narrative HISTORICAL TESTING LAB RESULTING AGENCY - 03/20/2022 2:16 PM EDT [id number] THINPREP PAP, IMAGED: NEGATIVE FOR SQUAMOUS INTRAEPITHELIAL LESION AND MALIGNANCY . MANDI HAMILTON , CT(ASCP) (CASE ELECTRONICALLY SIGNED 03 20 2022) RESULT OF APTIMA HIGH RISK HPV ASSAY: HIGH RISK HPV: ??NEGATIVE (SEROTYPES 16,18,31,33,35,39,45,51,52,56,58,59,66,68) COMPLETED ON 2022-03-17 ADEQUACY: SATISFACTORY ENDOCERVICAL/TRANSFORMATION ZONE COMPONENT ABSENT. SOURCE: THINPREP PAP HPV ANY DX: ??REFLEX 16 AND 18, CERVICAL, IMAGED CLINICAL INFORMATION: HPV ANY DIAGNOSIS. HORMONES, PAP HX POSITIVE HYST 2007, [PARTIAL HYSTERECTOMY] [Z12.4] us Veronica Lowry DO LAB CYTOLOGY ORDERABLES Final Result HISTORICAL TESTING LAB RESULTING AGENCY from Last 3 Months or Most Recently Relevant to Health Maintenance Insurance [employer] [facility] Care Teams Reimbursement Representative Relationship Specialty Start Date End Date Nneka Paredes MD PCP - General Internal Medicine 07/26/24
--- OUTSIDE RECORDS SUMMARY | 2024-10-12 08:03 | XMS_ITS | Encounter Summary ---
Author Organization [employer] [facility] Address [address] [place] [address] Care Team Providers Care Regulatory Administrator Name Role Phone Doyle Samuels MD Primary Care Provider Unavail able Linus Feng MD Primary Care Provider Doyle Samuels MD Primary Care Provider Unavail able Encounter Details Date Type Department Care Team Description 01/05/2018 SCAN Medical Records [address] [place] [address] Elliot Damico MD [address] [place] [address] Social History Tobacco Use Types Packs/Day Years [...] on filedocumented in this encounter Care Teams Regulatory Administrator Relationship Specialty Start Date End Date Doyle Samuels MD PCP - General Internal Medicine 11/21/13 02/15/22 Linus Feng MD [address] [place] [address] PCP - General Internal Medicine 02/16/22 06/28/22 Doyle Samuels MD [address] [place] [address] PCP - General Internal Medicine 06/29/22 documented as of this encounter
--- OUTSIDE RECORDS SUMMARY | 2024-10-12 08:03 | XMS_ITS | Encounter Summary ---
Author Organization [employer] [facility] Address [address] [place] [address] Care Team Providers Care Tie Hacker Name Role Phone Doyle Samuels MD Primary Care Provider Unavail able Linus Feng MD Primary Care Provider [phone] Doyle Samuels MD Primary Care Provider Unavail able Reason for Referral * Non SHAD (Routine) - Authorized/Booked Specialty Diagnoses / Procedures Referred By Katie shipley Referred To Contact Gastroenterology Diagnoses Hepatic steatosis Procedures REFERRAL TO GASTROENTEROLOGY Nicol Pina FNP [address] [place] [address] Danny Chamberlain MD [address] [place] [address] Referral ID Status Reason Start Date Expiration Date V isits Requested Visits Authorized [id number] Authorized/ Booked 02/07/2018 02/07/2019 12 12 Encounter Details Date Type Department Care Team Description 02/07/2018 Orders Only Adult Medicine B - [address] [address] Nicol Pina FNP Hepatic steatosis (Primary Dx) Social History Tobacco Use Types Packs/Day Years [...] documented as of this encounter Results * HEPATITIS PANEL (02/07/2018 3:50 PM EDT) Hepatitis B surface antigen NEGATIVE NEGATIVE 02/08/2018 11:21 AM EDT [facility] Hepatitis B surface antibody NEGATIVE 02/08/2018 11:25 AM EDT [facility] Comment:Individual is consid ered NOT to be immune to HBV. HEPATITIS C VIRUS ANTIBODY NEGATIVE NEGATIVE 02/08/2018 11:21 AM EDT [facility] HEPATITIS A ANTIBODY TOTAL NEGATIVE 02/08/2018 11:21 AM EDT [facility] HEPATITIS B CORE ANTIBODY NEGATIVE NEGATIVE 02/08/2018 11:21 AM T [facility] 02/07/2018 3:50 PM EDT 02/07/2018 3:50 PM EDT Nicol Pina [facility]IN[facility] Performing Organization Address City/State/[facility] de Phone Number [address] documented in this encounter Visit Diagnoses Diagnosis Hepatic steatosis- Primary Other chronic nonalcoholic liver disease documented in this encounter Care Teams Tie Hacker Relationship Specialty Start Date End Date Doyle Samuels MD PCP - General Internal Medicine 11/21/13 02/15/22 Linus Feng MD [address] [place] [address] PCP - General Internal Medicine 02/16/22 06/28/22 Doyle Samuels MD [address] [place] [address] PCP - General Internal Medicine 06/29/22 documented as of this encounter
--- OUTSIDE RECORDS SUMMARY | 2024-10-12 08:03 | XMS_ITS | Encounter Summary ---
Author Organization [facility] [employer] [facility] Address [address] [place] [address] Care Team Providers Care Chart Clerk Name Role Phone Doyle Samuels MD Primary Care Provider Unavail able Linus Feng MD Primary Care Provider [phone] Doyle Samuels MD Primary Care Provider Unavail able Encounter Details Date Type Department Care Team Description 12/04/2015 Release of Information Medical Records [address] [place] [address] Abstract, Provider Social History Tobacco Use Types [...] on filedocumented in this encounter Care Teams Chart Clerk Relationship Specialty Start Date End Date Doyle Samuels MD PCP - General Internal Medicine 11/21/13 02/15/22 Linus Feng MD [address] [place] [address] PCP - General Internal Medicine 02/16/22 06/28/22 Doyle Samuels MD [address] [place] [address] PCP - General Internal Medicine 06/29/22 documented as of this encounter
--- OUTSIDE RECORDS SUMMARY | 2024-10-12 08:03 | XMS_ITS | Encounter Summary ---
Author Organization [facility] Address [address] [place] [address] Care Team Providers Care Arson And Bomb Investigator Name Role Phone Doyle Samuels MD Primary Care Provider Unavail able Linus Feng MD Primary Care Provider [phone] Doyle Samuels MD Primary Care Provider Unavail able Encounter Details Date Type Department Care Team Description 03/07/2014 Kettle Worker Report Medical Records [address] [place] [address] Janina Larson MD [address] [place] [id number] Social History Tobacco Use Types Packs/Day Years [...] on filedocumented in this encounter Care Teams Arson And Bomb Investigator Relationship Specialty Start Date End Date Doyle Samuels MD PCP - General Internal Medicine 11/21/13 02/15/22 Linus Feng MD [address] [place] [address] PCP - General Internal Medicine 02/16/22 06/28/22 Doyle Samuels MD [address] [place] [address] PCP - General Internal Medicine 06/29/22 documented as of this encounter
--- OUTSIDE RECORDS SUMMARY | 2024-10-12 08:03 | XMS_ITS | Encounter Summary ---
Author Organization [facility] Address [address] [place] [address] Care Team Providers Care Customer Care Consultant Name Role Phone Doyle Samuels MD Primary Care Provider Unavail able Linus Feng MD Primary Care Provider [phone] Doyle Samuels MD Primary Care Provider Unavail able Encounter Details Date Type Department Care Team Description 02/03/2022 Hose Sprayer Report Medical Records [address] [place] [id number] Jairo Campos MD Social History Tobacco Use [...] on filedocumented in this encounter Care Teams Customer Care Consultant Relationship Specialty Start Date End Date Doyle Samuels MD PCP - General Internal Medicine 11/21/13 02/15/22 Linus Feng MD [address] [place] [address] PCP - General Internal Medicine 02/16/22 06/28/22 Doyle Samuels MD [address] [place] [address] PCP - General Internal Medicine 06/29/22 documented as of this encounter
--- OUTSIDE RECORDS SUMMARY | 2024-10-12 08:03 | XMS_ITS | Encounter Summary ---
Author Organization [facility] Address [address] [place] [address] Care Team Providers Care Driver'S License Reviewing Officer Name Role Phone Doyle Samuels MD Primary Care Provider Unavail able Linus Feng MD Primary Care Provider [phone] Doyle Samuels MD Primary Care Provider Unavail able Reason for Visit * Reason Onset Date Comments Medication 06/25/2020 Encounter Details Date Type Department Care Team Description 06/25/2020 Refill Gastroenterology - [place] [address] [place] [address] Vicki Greenberg MD Medication Social [...] on filedocumented in this encounter Care Teams Driver'S License Reviewing Officer Relationship Specialty Start Date End Date Doyle Samuels MD PCP - General Internal Medicine 11/21/13 02/15/22 Linus Feng MD [address] [place] [id number] PCP - General Internal Medicine 02/16/22 06/28/22 Doyle Samules MD [address] [place] [address] PCP - General Internal Medicine 06/29/22 documented as of this encounter
--- OUTSIDE RECORDS SUMMARY | 2024-10-12 08:03 | XMS_ITS | Encounter Summary ---
Author Organization [facility] Address [address] [place] [address] Care Team Providers Care Systems Trainer Name Role Phone Doyle Samuels MD Primary Care Provider Unavail able Linus Feng MD Primary Care Provider [phone] Doyle Samuels MD Primary Care Provider Unavail able Reason for Visit * Reason Comments Encounter Details Date Type Department Care Team Description 01/18/2014 Telephone OBGYN - [address] [address] Taina Vivar CNM Social History Tobacco Use Types Packs/Day Years Used Date Smoking Tobacco: Never Alcohol Use Standard Drinks/Week Comments No 0 (1 standard drink = 0.6 oz pur e alcohol) Sex Assigned at Date Recorded Not on file Job Start Date Occupation Industry Not on file Not on file Not on file documented as of this encounter Miscellaneous Notes * Telephone Encounter - Taina Vivar CNM - 01/18/2014 5:21 PM EDT Has left ovarian cyst Needs follow up in 2-3 months If patient has pain should see MD to determine if surgery is warranted This lesion currently is benign F/U sono in 3 months ordered documented in this encounter Plan of Treatment Not on file documented as of this encounter Results * SONO PELVIS COMPLETE (03/28/2014 10:28 AM EDT) 03/28/2014 12:0 0 PM EDT Impressions [facility] OTHER EXTERNAL - 03/28/2014 12:02 PM EDT IMPRESSION: ??Interval decrease in size of left ovarian complex cyst or less likely mass. Recommend followup pelvic ultrasound in 6 weeks to document resolution. Status post hysterectomy. Narrative [facility] OTHER EXTERNAL - 03/28/2014 12:02 PM EDT PELVIC ULTRASOUND History: ??Followup left ovarian cyst. Status post hysterectomy. Procedure: Transabdominal and transvaginal pelvic ultrasound. Comparison: Pelvic ultrasound performed 01/18/2014. FINDINGS: Transvaginal imaging was performed for better assessment of the adnexa. The uterus is surgically absent. Right ovary measures 3.1 x 1.3 x 1.4 cm and appears normal. Left ovary measures 3.6 x 2.1 x 2.6 cm inclusive of a 1.0 x 0.6 x 1.3 cm hypoechoic complex cyst or mass (previously 1.6 x 1.4 x 1.6 cm). ??No free fluid was seen. Procedure Note Tacho Crystal MD - 03/28/2014 PELVIC ULTRASOUND History: Followup left ovarian cyst. Status post hysterectomy. Procedure: Transabdominal and transvaginal pelvic ultrasound. Comparison: Pelvic ultrasound performed 01/18/2014. FINDINGS: Transvaginal imaging was performed for better assessment of theadnexa. The uterus is surgically absent. Right ovary measures 3.1 x 1.3 x 1.4 cm and appearsnormal. Left ovary measures 3.6 x 2.1 x 2.6 cm inclusive of a 1.0 x 0.6 x 1.3 cm hypoechoiccomplex cyst or mass (previously 1.6 x 1.4 x 1.6 cm). No free fluid was seen. IMPRESSION: Interval decrease in size of left ovarian complex cyst orless likely mass. Recommend followup pelvic ultrasound in 6 weeks to document resolution.Status post hysterectomy. Taina Vivar CNM ULTRASOUND [facility] OTHER EXTERNAL documented in this encounter Visit Diagnoses Diagnosis Ovarian cyst, left- Primary Other and unspecified ovarian cyst Ovarian cyst, left Other and unspecified ovarian cyst documented in this encounter Care Teams Systems Trainer Relationship Specialty Start Date End Date Doyle Samuels MD PCP - General Internal Medicine 11/21/13 02/15/22 Linus Feng MD [address] [place] [address] PCP - General Internal Medicine 02/16/22 06/28/22 Doyle Samuels MD [address] [place] [address] PCP - General Internal Medicine 06/29/22 documented as of this encounter
[2024-10-12 08:07] VITALS: BP 90/66; PULSE 87; O2SAT 99; BMI 25.9
== END 2024-10-12 08:40 | disposition home or self-care (01) ==
PROVIDERS: PCP Internal Medicine; Visit Provider Internal Medicine Rheumatology
DX: M05.9 Rheumatoid arthritis with rheumatoid factor, unspecified (principal); Z79.899 Other long term (current) drug therapy; M85.80 Other specified disorders of bone density and structure, unspecified site; M79.671 Pain in right foot; M79.672 Pain in left foot; M21.619 Bunion of unspecified foot
CPT/HCPCS: 99214

== ENCOUNTER → 2024-10-12 07:59 | Outpatient (BNVA) | payer OTHER, SELFPAY | PROVIDERS: PCP Internal Medicine; Visit Provider Internal Medicine Rheumatology ==

== ENCOUNTER 2024-10-17 10:35 | Outpatient (REF) | payer OTHER, SELFPAY ==
--- OUTSIDE RECORDS SUMMARY | 2024-10-17 12:39 | XMS_ITS | Clinical Summary ---
Author Organization [facility] [address] [place] [address] [place] [phone] Phone Care Team Providers Care Cafeteria Cashier Name Role Phone Nneka Paredes MD Primary Care Provider Encounters Date Type Department Care Team Description 07/26/2024 7:17 AM EST - 07/26/2024 11:59 PM [facility] Hospital Encounter Radiology Department - [address] [phone] Encounter for screening mammogram for breast cancer [...] is recommended in 1 year. Mammo Location: [facility], [address] [place] [address], [id number], . -------- FINAL REPORT -------- Dictated By: Deanna Hernandez Dictated Date: 07/26/2024 13:47 ET Assigned Physician: Deanna Hernandez Reviewed and Electronically Signed By: Deanna Hernandez Signed Date: 07/26/2024 13:51 ET Workstation ID: [id number] Transcribed By: Self Edit Transcribed Date: 07/26/2024 [...] is recommended in 1 year. Mammo Location: [facility], [address] [place] [address], [id number], . -------- FINAL REPORT -------- Dictated By: Deanna Hernandez Dictated Date: 07/26/2024 13:47 ET Assigned Physician: Deanna Hernandez Reviewed and Electronically Signed By: Deanna Hernandez Signed Date: 07/26/2024 13:51 ET Workstation ID: [id number] Transcribed By: Self Edit Transcribed Date: 07/26/2024 13:47 ET us Nneka Paredes MD IMG BI PROCEDURES Final Res ult * Pap smear (03/13/2022) 03/13/2022 Narrative HISTORICAL TESTING LAB RESULTING AGENCY - 03/20/2022 2:16 PM EDT [id number] THINPREP PAP, IMAGED: NEGATIVE FOR SQUAMOUS INTRAEPITHELIAL [...] Most Recently Relevant to Health Maintenance Insurance [employer] [facility] Care Teams Cafeteria Cashier Relationship Specialty Start Date End Date Nneka Paredes MD PCP - General Internal Medicine 07/26/24
[2024-10-17 18:06] LABS: MANUAL DIFF FLAG NO
[2024-10-17 18:13] LABS: Basophils Percent Auto 0.5 % (0-2); Eosinophils Absolute Auto 0.2 X10*3/uL (0.0-0.4); Eosinophils Percent Auto 2.9 % (0-4); Hematocrit 40.5 % (37.0-47.0); Hemoglobin 13.3 g/dl (12.0-16.0); Imm Gran Abs Auto 0.01 X10*3/uL (0.00-0.03); Imm Gran Pct Auto 0.2 % (0.0-0.4); Lymphocytes Absolute Auto 1.8 X10*3/uL (1.2-4.9); Lymphocytes Percent Auto 32.1 % (20-40); Mean Corpuscular HGB Conc 32.8 g/dl (31.0-35.0); Mean Corpuscular Hemoglobin 30.5 pg (27.0-33.0); Mean Corpuscular Volume 92.9 fL (80.0-98.0); Mean Platelet Volume 11.1 fL (9.4-12.3); Monocytes Absolute Auto 0.3 X10*3/uL (0.1-1.2); Monocytes Percent Auto 5.8 % (2-11); Neutrophils Absolute Auto 3.2 x10*3/uL (2.0-8.3); Neutrophils Percent Auto 58.5 % (45-73); Platelet Count 196 X10*3/uL (160-400); Red Blood Count 4.36 X10*6/uL (4.20-5.50); Red Cell Distribution Width 12.1 % (11.0-16.0); White Blood Count 5.5 X10*3/uL (4.8-10.8)
[2024-10-17 18:38] LABS: Alanine Aminotransferase 33 U/L (0-31); Aspartate Amino Transferase 26 U/L (5-31); C Reactive Protein 0.36 mg/dL (< or = 0.50); Estimated Glomerular Filt Rate > 60; Magnesium 2.5 mg/dL (1.6-2.6); Phosphorus 2.8 mg/dL (2.7-4.5)
[2024-10-17 18:39] LABS: Parathyroid Hormone Intact 40.8 pg/mL (8.7-77.1)
[2024-10-17 18:50] LABS: Erythrocyte Sedimentation Rate 11 MM/HR (0-20)
[2024-10-20 16:38] LABS: TS Negative Control Passed; TS Panel A 1; TS Panel B 2; TS Positive Control Passed; TSpotTB Negative (Negative)
== END 2024-10-17 10:36 | disposition home or self-care (01) ==
LOC: HO.HKASLDS 10:35
PROVIDERS: Visit Provider Internal Medicine Rheumatology
DX: M85.80 Other specified disorders of bone density and structure, unspecified site (principal); Z79.899 Other long term (current) drug therapy; Z79.60 Long term (current) use of unspecified immunomodulators and immunosuppressants; Z11.1 Encounter for screening for respiratory tuberculosis
CPT/HCPCS: 36415; 82565; 83735; 83970; 84100; 84443; 84450; 84460; 85025; 85652; 86140; 86481

== ENCOUNTER 2025-02-06 07:59 | Outpatient (AMB) | payer OTHER, SELFPAY ==
--- NOTE | 2025-02-06 08:00 | A.OFFVIS_ITS ---
Vital Signs 02/06/25 08:01 Height 5 ft 3 in Weight 142 lb 8 oz BMI 25.2 BP 98/52 L Blood Pressure Location Rt brachial Position Sitting Pulse 94 Pulse Source Pulse Oximeter Pulse Oximetry (%) 97 Oxygen Delivery Method Room Air Intake Visit Reasons: 3 months Intake Note: Patient presents today for RA follow up. Accompanied by: Self / Same As Patient Allergies Penicillins Allergy (Mild, Verified 02/06/25 08:01) Rash HPI HPI 3 months: Details: She feels well. Eating healthy and exercising with walking 20 min. Mother 2 months ago with hemorrhagic stroke complicated with new dx of cirrhosis and PNA. She stopped SSZ due to ALT elevation. No new joint pain or joint swelling. No morning stiffness. She take curcumin capsule. She has intermittent heel pain improved with new shoes. [facility] Medical History Hx of cervical cancer Hx of adenomatous polyp of colon Malignant glomus tumor Cervical carcinoma Colonic polyp Surgical History History of partial hysterectomy Family History (Updated 02/06/25 @ 08:04 by Otilia Akins CMA) Mother Osteoporosis Breast cancer Cirrhosis Other Brainstem stroke syndrome Social History Housing: House Patient Tobacco Use Status: Former Tobacco user e-Cigarette/Vaping Use: Never Used service: No Current occupational status: employed Cognitive needs: No Hearing needs: No Vision needs: Yes Physical Exam Vital Signs: Last Vital Signs Pulse 94 02/06/25 08:01 BP 98/52 L 02/06/25 08:01 Pulse Ox 97 02/06/25 08:01 Oxygen Delivery Method Room Air 02/06/25 08:01 BMI result Body Mass Index 25.2 Const Other: General: Comfortable CVS: RRR Respiratory: clear to auscultation bilaterally. Good respiratory effort Skin: No lesions seen MSK: No MTP tenderness on left foot. No heel tenderness. No synovitis present of any joints. Normal range of motion of upper extremity and lower extremity. Assessment & Plan Assessment & Plan (1) Rheumatoid arthritis: Comment: In remission. She self discontinued sulfasalazine due to elevation in ALT and fear for developing liver disease as her mother recently was cirrhosis. History seropositivity with positive rheumatoid factor 46 and anti CCP positive greater than 250. Previously treated with methotrexate 07/12/2024 to 10/12/2025 discontinued due to transaminitis. She has been on sulfasalazine from 10/12/2015 to present. History of cervical cancer. Code(s): M06.9 - Rheumatoid arthritis, unspecified Category: Medical Qualifiers: Rheumatoid arthritis location: unspecified site Rheumatoid factor presence: with rheumatoid factor Qualified Code(s): M05.9 - Rheumatoid arthritis with rheumatoid factor, unspecified Plan: Labs for drug monitoring on high-risk medication ordered We discussed the importance of being on DMARD therapy to prevent flare from rheumatoid arthritis and progression of disease. After lab results are back, we will consider restarting sulfasalazine. If she continues to have elevation in ALT, she will need liver ultrasound with elastography for further evaluation Continue curcumin capsule daily Return to clinic in 3 months (2) Other long distance billing operator (current) drug therapy: Code(s): Z79.899 - Other long distance billing operator (current) drug therapy Category: Medical Plan: See above (3) Osteopenia: Comment: On bone density 02/2015 with lowest T-score -1.1. She has previously been treated with alendronate from 03/11/2015 to 03/11/2017. Recent bone density 09/27/2024 reveals lowest T-score -2.0 lumbar spine, T-score-1.1 left femoral neck, T-score 0.1 total left hip. Bone density has worsened since 2014. Vitamin-D level was checked in 07/12/2024, which was 59. It was rechecked in August 2024, which was 71.9. Code(s): M85.80 - Other specified disorders of bone density and structure, unspecified site Category: Medical Qualifiers: Osteopenia location: unspecified Qualified Code(s): M85.80 - Other specified disorders of bone density and structure, unspecified site Plan: She will continue to take calcium 600 mg and vitamin-D supplement daily. Recheck vitamin-D level today Return to clinic in 3 months (4) Foot pain: Comment: left heel is from calcaneal spur seen on x-ray. Improving with better foot support Code(s): M79.673 - Pain in unspecified foot Category: Medical Qualifiers: Laterality: bilateral Qualified Code(s): M79.671 - Pain in right foot; M79.672 - Pain in left foot Plan: Continue to wear for supportive footwear at work and at home. (5) Transaminitis: Comment: mild elevation in ALT. She does not drink alcohol. She discontinued her medications due to fear of developing liver disease as her mother recently from cirrhosis. Code(s): R74.01 - Elevation of levels of liver transaminase levels Category: Medical Plan: I will check LFTs this visit. If it continues to be mildly elevated, I will order liver ultrasound with elastography for further evaluation Plan . Orders: Orders Aspartate Amino Transferase Today M05.9 - Rheumatoid arthritis with rheumatoid factor, unspecified, Z79.60 - moth exterminator (current) use of unspecified immunomodulators and immunosuppressants, Z79.899 - Other alf (current) drug therapy Creatinine Today M05.9 - Rheumatoid arthritis with rheumatoid factor, unspecified, Z79.60 - [facility] (current) use of unspecified immunomodulators and immunosuppressants, Z79.899 - Other long distance billing operator (current) drug therapy Alanine Aminotransferase Today M05.9 - Rheumatoid arthritis with rheumatoid factor, unspecified, Z79.60 - moth exterminator (current) use of unspecified immunomodulators and immunosuppressants, Z79.899 - Other long distance billing operator (current) drug therapy Complete Blood Count Auto Diff Today M05.9 - Rheumatoid arthritis with rheuma toid factor, unspecified, Z79.60 - moth exterminator (current) use of unspecified immunomodulators and immunosuppressants, Z79.899 - Other long distance billing operator (current) drug therapy Erythrocyte Sedimentation Rate Today M05.9 - Rheumatoid arthritis with rheumatoid factor, unspecified, Z79.899 - Other alf (current) drug therapy C Reactive Protein Today M05.9 - Rheumatoid arthritis with rheumatoid factor, unspecified, Z79.899 - Other long distance billing operator (current) drug therapy Vitamin D 25-OH Total Today M85.80 - Other specified disorders of bone density and structure, unspecified site Coding Level of Care Code Est Pt Level 4 (55612) Complex EM visit Add On G2211 Diagnoses Rheumatoid arthritis with positive rheumatoid factor, involving unspecified site M05.9 Rheumatoid arthritis location: unspecified site Rheumatoid factor presence: with rheumatoid factor Other alf (current) drug therapy Z79.899 Osteopenia, unspecified location M85.80 Osteopenia location: unspecified Pain in both feet M79.671; M79.672 Laterality: bilateral Transaminitis R74.01
[2025-02-06 08:01] VITALS: BP 98/52; PULSE 94; O2SAT 97; BMI 25.2
--- OUTSIDE RECORDS SUMMARY | 2025-02-06 08:03 | XMS_ITS | Clinical Summary ---
Author Organization [facility] [address] [place] [address] [place] [phone] Phone Care Team Providers Care Reliability Specialist Name Role Phone Nneka Paredes MD Primary Care Provider [phone] Surgical History Surgery Date Site/Laterality Comments HYSTERECTOMY [...] age to complete this topic Meningococcal B Vaccine Aged Out No l onger eligible based on patient's age to complete [...] is recommended in 1 year. Mammo Location: [facility], [address] [place] [address], [id number], . -------- FINAL REPORT -------- Dictated By: Deanna Hernandez Dictated Date: 07/26/2024 13:47 ET Assigned Physician: Deanna Hernandez Reviewed and Electronically Signed By: Deanna Hernandez Signed Date: 07/26/2024 13:51 ET Workstation ID: [id number] Transcribed By: Self Edit Transcribed Date: 07/26/2024 [...] is recommended in 1 year. Mammo Location: [facility], [address] [place] [address], [id number], . -------- FINAL REPORT -------- Dictated By: Deanna Hernandez Dictated Date: 07/26/2024 13:47 ET Assigned Physician: Deanna Hernandez Reviewed and Electronically Signed By: Deanna Hernandez Signed Date: 07/26/2024 13:51 ET Workstation ID: [id number] Transcribed By: Self Edit Transcribed Date: 07/26/2024 13:47 ET us Nneka Paredes MD IMG BI PROCEDURES Final Res ult * Pap smear (03/13/2022) 03/13/2022 Narrative HISTORICAL TESTING LAB RESULTING AGENCY - 03/20/2022 2:16 PM EDT [id number] THINPREP PAP, IMAGED: NEGATIVE FOR SQUAMOUS INTRAEPITHELIAL [...] Most Recently Relevant to Health Maintenance Insurance [employer] [facility] Care Teams Reliability Specialist Relationship Specialty Start Date End Date Nneka Paredes MD PCP - General Internal Medicine 07/26/24
== END 2025-02-06 08:25 | disposition home or self-care (01) ==
LOC: HO.RHES 08:00
PROVIDERS: PCP Internal Medicine; Visit Provider Internal Medicine Rheumatology
DX: M05.9 Rheumatoid arthritis with rheumatoid factor, unspecified (principal); Z79.899 Other long term (current) drug therapy; M85.80 Other specified disorders of bone density and structure, unspecified site; M79.671 Pain in right foot; M79.672 Pain in left foot; R74.01 Elevation of levels of liver transaminase levels
CPT/HCPCS: 99214

== ENCOUNTER 2025-02-06 07:59 | Outpatient (REF) | payer OTHER, SELFPAY ==
[2025-02-06 17:30] LABS: MANUAL DIFF FLAG NO
[2025-02-06 17:51] LABS: Basophils Percent Auto 0.3 % (0-2); Eosinophils Absolute Auto 0.2 X10*3/uL (0.0-0.4); Eosinophils Percent Auto 3.5 % (0-4); Hematocrit 43.4 % (37.0-47.0); Hemoglobin 13.8 g/dl (12.0-16.0); Imm Gran Abs Auto 0.02 X10*3/uL (0.00-0.03); Imm Gran Pct Auto 0.3 % (0.0-0.4); Lymphocytes Absolute Auto 1.3 X10*3/uL (1.2-4.9); Mean Corpuscular HGB Conc 31.8 g/dl (31.0-35.0); Mean Corpuscular Hemoglobin 29.8 pg (27.0-33.0); Mean Corpuscular Volume 93.7 fL (80.0-98.0); Mean Platelet Volume 10.8 fL (9.4-12.3); Monocytes Absolute Auto 0.3 X10*3/uL (0.1-1.2); Monocytes Percent Auto 5.2 % (2-11); Neutrophils Absolute Auto 4.2 x10*3/uL (2.0-8.3); Neutrophils Percent Auto 69.7 % (45-73); Platelet Count 201 X10*3/uL (160-400); Red Blood Count 4.63 X10*6/uL (4.20-5.50); Red Cell Distribution Width 12.1 % (11.0-16.0)
[2025-02-06 18:15] LABS: Alanine Aminotransferase 22 U/L (0-31); Aspartate Amino Transferase 23 U/L (5-31); C Reactive Protein 0.37 mg/dL (< or = 0.50); Estimated Glomerular Filt Rate > 60
[2025-02-06 18:20] LABS: Vitamin D 25-OH Total 47.4 ng/mL (>30)
[2025-02-06 18:28] LABS: Erythrocyte Sedimentation Rate 16 MM/HR (0-20)
== END 2025-02-06 08:00 | disposition home or self-care (01) ==
LOC: HO.HKASLDS 07:59
PROVIDERS: PCP Internal Medicine; Visit Provider Internal Medicine Rheumatology
DX: M05.9 Rheumatoid arthritis with rheumatoid factor, unspecified (principal); Z79.899 Other long term (current) drug therapy; Z79.60 Long term (current) use of unspecified immunomodulators and immunosuppressants; M85.80 Other specified disorders of bone density and structure, unspecified site
CPT/HCPCS: 36415; 82306; 82565; 84450; 84460; 85025; 85652; 86140

== ENCOUNTER 2025-02-19 09:25 | Outpatient (AMB) | payer OTHER, SELFPAY ==
--- NOTE | 2025-02-19 09:28 | A.OFFVIS_ITS ---
Vital Signs 02/19/25 09:37 Height 5 ft 3 in Weight 144 lb BMI 25.5 BP 124/72 Blood Pressure Location Rt brachial Position Sitting Pulse 76 Pulse Source Pulse Oximeter Pulse Oximetry (%) 99 Oxygen Delivery Method Room Air Intake Visit Reasons: colo screening Intake Note: New pt for recall colo. Last 2019 via [employer]. Pdf on file. CC; Pt denies any GI sx or concerns at this time. Discussing colo recall. Operations Developer Required: No Accompanied by: Family/Other Allergies Penicillins Allergy (Mild, Verified 02/19/25 09:28) Rash HPI HPI colo screening: Details: 54 year old? female with past medical history of transaminitis, history of cervical cancer, history of adenomatous polyp in her colon, osteopenia, rheumatoid arthritis is here today for pre colonoscopy screening.? Patient was sent to us by her PCP.? ? Patient denies any gastrointestinal symptoms in the past or at present.? Denies any family history of CRC.? Denies history of difficulty with sedation or anesthesia in the past.? Negative for history of sleep apnea.? Denies any history of cardiac, renal, pulmonary, or hepatic disease.?? No history of infectious? diseases like hepatitis A, B, C, HIV or tuberculosis.? Patient is not on any anticoagulation PFSH Medical History Hx of cervical cancer Hx of adenomatous polyp of colon Malignant glomus tumor Cervical carcinoma Colonic polyp Surgical History History of partial hysterectomy Family History Mother Osteoporosis Breast cancer Cirrhosis Other Brainstem stroke syndrome Social History Housing: House Patient Tobacco Use Status: Former Tobacco user e-Cigarette/Vaping Use: Never Used service: No Current occupational status: employed Cognitive needs: No Hearing needs: No Vision needs: Yes Review of Systems Const Denies weight gain and Denies weight loss ENT Reports no additional complaints, Denies dysphagia and Denies odynophagia Card Reports no additional complaints Resp Reports no additional complaints GI Denies abdominal pain, Denies belching, Denies melena, Denies bloating, Denies change in bowel habits, Reports constipation (Occasional), Denies dysphagia, Denies excessive flatus, Denies dyspepsia, Denies heartburn, Denies diarrhea, Denies loose stools, Denies nausea, Denies odynophagia and Denies vomiting Musc Reports no additional complaints Neuro Reports no additional complaints Psych Reports no additional complaints Endo Reports no additional complaints Physical Exam Const General: healthy appearing, no acute distress and well developed Nutritional Appearance: well nourished Orientation/consciousness: patient oriented x3 Resp Effort & Inspection: normal respiratory effort, able to speak in complete sentences, no tracheal deviation and symmetric chest movement Auscultation: clear to auscultation bilaterally Cardio Rate: regular rate GI Inspection: Yes normal to inspection and No distended Palpation (GI): Soft to palpation, not firm, nontender and No hepatosplenomegaly present Auscultation: normal bowel sounds General: Yes no CVA tenderness Back/Spine/Pelvis Back: no CVA tenderness Skin General skin exam: elasticity normal, turgor normal and dry skin Neuro General: patient oriented x3 Psych Appearance: grossly normal Mental Status: mental status grossly normal Assessment & Plan Assessment & Plan (1) Transaminitis: Code(s): R74.01 - Elevation of levels of liver transaminase levels Category: Medical (2) Hx of adenomatous polyp of colon: Code(s): Z86.0101 - Personal history of adenomatous and serrated colon polyps Category: Medical (3) Screen for colon cancer: Code(s): Z12.11 - Encounter for screening for malignant neoplasm of colon Plan Patient denies any GI, cardiac or respiratory symptoms.? Patient reports occasional constipation. Currently she is taking stool softeners with good results. Patient will start taking Dulcolax few days before procedure to ensure good prep. Denies any issues with anesthesia in the past.? Denies any history of sleep apnea.? No history infectious diseases in the past or present.? Not on any anticoagulation therapy.? No family or personal history of colon cancer or polyps.? Patient denies melena, hematochezia, unintentional weight loss or ribbon like stools.? Discussed at length the pre-procedure,? prep, diet & medications as well as what to expect prior, during and after the procedure.?? Stressed the importance of good bowel prep.? Recommended the use of Vaseline or Calmoseptine OTC & baby wipes with bowel movements to promote comfort.? ?Patient verbalizes understanding and agrees to plan of care.? She was given the opportunity to ask questions and all questions answered.? We will see her after the procedure.? Medications: New bisacodyl (Dulcolax (bisacodyl)) Start taking 2 tablet every night 7 days before the procedure and 1 day bef ore procedure take 4 tablets at noon time followed by MiraLax prep 10 mg (2 x 5 mg) PO BEDTIME 16 tabs 0RF Z12.11 - Encounter for screening for malignant neoplasm of colon polyethylene glycol 3350 (Miralax) As directed by gastroenterology department at [facility] 238 grams PO ONCE 238 grams 0RF Z12.11 - Encounter for screening for malignant neoplasm of colon Coding Level of Care Code New Pt Level 3 (10990) Diagnoses Transaminitis R74.01 Hx of adenomatous polyp of colon Z86.0101 Screen for colon cancer Z12.11 Time Spent (min) 40 Comment 30 minutes spent with patient and additional 10 minutes spent reviewing her records
[2025-02-19 09:37] VITALS: BP 124/72; PULSE 76; O2SAT 99; BMI 25.5
--- OUTSIDE RECORDS SUMMARY | 2025-02-19 09:44 | XMS_ITS | Encounter Summary ---
Author Organization Yolande Pollen - Social Platform [facility] Address [address] [place] [address] Care Team Providers Care Provisioning Analyst Name Role Phone Doyle Samuels MD Primary Care Provider Unavail able Linus Feng MD Primary Care Provider [phone] Doyle Samuels MD Primary Care Provider Unavail able Reason for Visit * Reason Comments Encounter Details Date Type Department Care Team Description 01/18/2014 Telephone OBGYN - [address] [address] Taina Vivar CNM Social History Tobacco Use [...] EXTERNAL - 03/28/2014 12:02 PM EDT IMPRESSION: Interval decrease in size of left ovarian complex cyst or less likely mass. Recommend followup pelvic ultrasound in 6 weeks to document resolution. Status post hysterectomy. Narrative DANK CHANCE OTHER EXTERNAL - 03/28/2014 12:02 PM EDT PELVIC ULTRASOUND History: Followup left ovarian cyst. [...] 1.6 cm). No free fluid was seen. Procedure Note Tacho [...] 6 weeks to document resolution.Status post hysterectomy. aTina Vivar CNM ULTRASOUND DANK QUAN EXTERNAL documented in this encounter Visit Diagnoses Diagnosis Ovarian cyst, left- Primary Other and unspecified ovarian cyst Ovarian cyst, left Other and unspecified ovarian cyst documented in this encounter Care Teams Provisioning Analyst Relationship Specialty Start Date End Date Doyle Samuels MD PCP - General Internal Medicine 4/1/14 6/26/22 Linus Feng MD [address] [place] [address] PCP - General Internal Medicine 02/16/22 06/28/22 Doyle Samuels MD [address] [place] [address] PCP - General Internal Medicine 06/29/22 documented as of this encounter
== END 2025-02-19 10:10 | disposition home or self-care (01) ==
LOC: HO.HGI 09:26
PROVIDERS: PCP Internal Medicine; Visit Provider Nurse Practitioner Family
DX: R74.01 Elevation of levels of liver transaminase levels (principal); Z86.0101 Personal history of adenomatous and serrated colon polyps
CPT/HCPCS: 99203

== ENCOUNTER 2025-05-04 09:13 | Outpatient (AMB) | payer OTHER, SELFPAY ==
--- NOTE | 2025-05-04 09:52 | MHC.PC.OV ---
Intake Visit Reasons: discuss med Allergies Penicillins Allergy (Mild, Verified 05/04/25 10:24) Rash Medication List - Last Reconciled 05/04/25 by Nneka Paredes MD bisacodyl (Dulcolax (bisacodyl)) 10 mg (2 x 5 mg) PO BEDTIME calcium carbonate 600 mg PO DAILY [CVS Vitamin 3 PO] cyclobenzaprine 5 mg PO BEDTIME PRN docusate sodium 100 mg PO DAILY gabapentin 300 mg PO DAILY PRN magnesium aspart,citrate,oxide mg PO meloxicam 15 mg PO DAILY cl-0-hru-epa-fish oil-vit D3 300-1,000-1,000 mg-mg-unit caps PO polyethylene glycol 3350 (Miralax) 238 grams PO ONCE riboflavin (vitamin B2) 400 mg PO DAILY turmeric root extract (Curcuplex-95) 500 mg PO DAILY vitamin E-aloe vera ea topical Tobacco use date assessed: 05/04/25 Dental Screening Dental Screen Date: 05/04/25 Did you have a dental visit in the last 12 months?: Yes Did you have a dental problem in the last 6 months where you did not have access to dental care?: No Was dental information given to patient?: Patient has dentist HPI discuss med HPI Details The patient is a 54-year-old female presenting with depression following the recent of her mother. Her mother on November 19, and since then, the patient has been experiencing recurrent emotional distress, including frequent crying spells and intrusive memories of her mother's passing. These episodes often occur at work, where she sometimes needs to excuse herself to manage her emotions. She lives with her , who has been very supportive, encourages her to engage in activities and spend time with family, which she finds helpful. Has been having occasional sleep disturbance , waking up multiple times during the night and difficulty falling back asleep. She has not been on any antidepressants recently but was previously on Prozac, which she found helpful. She also mentioned that she is still waiting for an appointment date for her screening colonoscopy. She states that she was told during her initial visit that they will be contacting her , but states that she has not heard back from them since her initial visit , and has not yet received a response to her portal message sent 2 months ago. [facility] Medical History (Updated 05/04/25 @ 10:38 by Nneka Paredes MD) Bereavement without complication Hx of cervical cancer Hx of adenomatous polyp of colon Malignant glomus tumor Cervical carcinoma Colonic polyp Surgical History History of partial hysterectomy Family History Mother Osteoporosis Breast cancer Cirrhosis Other Brainstem stroke syndrome Social History Housing: House Patient Tobacco Use Status: Former Tobacco user e-Cigarette/Vaping Use: Never Used service: No Current occupational status: employed Cognitive needs: No Hearing needs: No Vision needs: Yes Questionnaire PHQ-9 Over the last 2 weeks, how often have you been bothered by any of the following problems? 1. Little interest or pleasure in doing things: several days 2. Feeling down, depressed, or hopeless: nearly every day 3. Trouble falling or staying asleep, or sleeping too much: nearly every day 4. Feeling tired or having little energy: more than half the days 5. Poor appetite or overeating: more than half the days 6. Feeling bad about yourself - or that you are a failure or have let yourself or your family down: not at all 7. Trouble concentrating on things, such as reading the newspaper or watching television: several days 8. Moving or speaking so slowly that other people could have noticed. Or the opposite - being so fidgety or restless that you have been moving around a lot more than usual: not at all 9. Thoughts that you would be better off or of hurting yourself in some way: not at all Total score: 12 Depression Screening Interpretation: Positive (started on Fluoxetine , pt declined referral for therapy) Depression Screening Follow-up: New Medication prescribed and Follow-up Visit Requested Depression Screening Done: Yes 96777 - PHQ-9 Billing: Yes Source: Developed by Drs. Brandon Turner, Leia Richardson, Tarun Barbosa and colleagues, with an educational bryant from [employer]. Thrive Questionnaire Date Thrive assessed: 08/24/24 I am a: Patient What is your living situation today?: I have a steady place to live Within the past 12 months, did the food you bought not last and you didn't have the money to get more?: Never true Within the past 12 months, did you worry whether your food would run out before you got money to buy more?: Never true Do you have trouble paying for medicines?: No Do you have trouble getting transportation to medical appointments?: No Do you have trouble paying your heating and electricity bill?: No Do you have trouble taking care of your child, family member or friend?: No Do you have trouble with day-to-day activities such as bathing, preparing meals, shopping, managing finances, etc.?: No Are you currently unemployed and looking for a job?: No Are you interested in more education?: No Please select the resources that you would like help with: None Currently or been in a relationship where the following occur: No concerns reported THRIVE Score: 0 LISETTE-7 AMB Questionnaire LISETTE-7 Date LISETTE - 7 assessed: 05/04/25 Feeling nervous, anxious, or on edge: 3 = Nearly every day Not being able to stop or control worryin = Not at all Worrying too much about different things: 2 = More than half the days Trouble relaxin = More than half the days Being so restless that it is hard to sit still: 1 = Several days Becoming easily annoyed or irritable: 0 = Not at all Feeling afraid as if something awful might happen: 0 = Not at all Total LISETTE-7 score (0-4 normal; 5-9 mild; 10-14 moderate; 15-21 severe): 8 Source: Developed by Drs. Brandon Turner, Leia Richardson, Tarun Barbosa and colleagues, with an educational bryant from [employer]. LISETTE-7 Assessment Billing LISETTE-7 Assessment Tool: LISETTE-7 Assessment 30744 Review of Systems Const All systems reviewed & are unremarkable except as noted in HPI and below Physical exam (Primary Care) Tobacco/Smoking Status: Tobacco use Status Tobacco use date assessed 05/04/25 05/04/25 09:58 Patient Tobacco Use Status Former Tobacco user 05/04/25 09:58 e-Cigarette/Vaping Use Never Used 05/04/25 09:58 PHQ-9: PHQ-9 Score PHQ-9: Total score 12 05/04/25 10:39 Depression Screening Interpretation: Positive (started on Fluoxetine , pt declined referral for therapy) Depression Screening Follow-up: New Medication prescribed and Follow-up Visit Requested Thrive Assessment: Date of Thrive Assessment Date Thrive assessed 08/24/24 05/04/25 09:58 Currently or been in a relationship where the following occur: No concerns reported Telehealth Telehealth Telehealth Platform: [employer] Location of provider rendering services: practice address Location of patient: address on file Patient Identification confirmed using: Name, : Yes Telehealth method: video Patient verbally consented to treatment: Yes Patient verbally consented to billing insurance company: Yes Patient informed of any privacy concerns related to visit: Yes Minutes spent on Phone/Video with Pt.: 15 Coding Level of Care Code Tele Est Pt Level 4 (33327) Diagnoses Bereavement without complication Z63.4 Additional Codes LISETTE-7 Assessment Billing - LISETTE-7 Assessment Tool: LISETTE-7 Assessment 75986 ([id number]) PHQ-9 - 09716 - PHQ-9 Billing: Yes ([id number]) Assessment & Plan Assessment & Plan (1) Bereavement without complication: Code(s): Z63.4 - Disappearance and of family member Category: Medical Plan: patient was informed and verbally consented to the use of an ambient scribe for clinic note documentation during this visit. will start fluoxetine 10 mg daily in the morning. . A follow-up telehealth appointment is scheduled in four weeks to assess the effectiveness of the medication and adjust the dosage if necessary. Declined referral for therapy, patient states that she has her family who has been very supportive during this time Colonoscopy Screening Pending The patient is advised to call again were send a message via portal to gastroenterology department regarding the appointment date for her colonoscopy Medications: New fluoxetine 10 mg PO DAILY 30 caps 2RF
--- OUTSIDE RECORDS SUMMARY | 2025-05-04 10:09 | XMS_ITS | Clinical Summary ---
Author Organization [facility] [address] [place] [address] [place] [phone] Phone Care Team Providers Care Tailings Dam Pumper Name Role Phone Nneka Paredes MD Primary Care Provider Surgical History Surgery Date Site/Laterality Comments HYSTERECTOMY [...] 11/27/2015, 2014 Colorectal Cancer Screening: Colonoscopy 08/01/2022 HIV Screening 08/01/2022 Hepatitis C Screening 08/01/2022 Social Influencers of Health Screening 08/01/2022 DTaP,Tdap,and Td Vaccines (7 - Td or Tdap) 02/20/2024 02/19/2014, 06/08/1986, 08/09/1982, Additional history exists Depression Screening 08/23/2024 Cervical Cancer Screening: Pap Smear 03/13/2025 03/13/2022, 05/04/2019 COVID-19 Vaccine ( season) 2025 08/31/2021, 01/14/2021, 12/17/2020 Influenza Vaccine (#1) 2025 4, 06/09/2023, 06/26/2022, Additional history exists Breast Cancer Screening 07/26/2026 07/26/20 24, 07/05/2023, 06/19/2023, Additional history exists MMR Vaccines Completed 07/07/1985 IPV Vaccines Completed 12/06/1987, 07/23, 08/11/1971, Additional history exists Hepatitis B Vaccines Completed 07/15/2015, 02/11/2015, 01/02/2015 Zoster Vaccines Completed 09/30/2021, 02/17/2021 HIB Vaccines Aged Out No longer eligi [...] is recommended in 1 year. Mammo Location: [facility], [address] [place] [address], [address], . -------- FINAL REPORT -------- Dictated By: Deanna Hernandez Dictated Date: 07/26/2024 13:47 ET Assigned Physician: Deanna Hernandez Reviewed and Electronically Signed By: Deanna Hernandez Signed Date: 07/26/2024 13:51 ET Workstation ID: [id number] Transcribed By: Self Edit Transcribed Date: 07/26/2024 13:47 ET Narrative 07/26/2024 1:51 PM EST Bilateral screening mammogram. CLINICAL: 53 years old, Female, routine annual exam. COMPARISON: Prior screening mammograms, latest from 06/19/2023 and 07/09/2023 TECHNIQUE: Bilateral MLO and CC views were obtained digitally with 3-D mammogram (digital breast tomosynthesis). Computer-aided detection was utilized in evaluation of this exam (CAD). FINDINGS: There is no evidence of suspicious mass or architectural distortion. No worrisome calcifications are evident. There has been no significant change from prior exam(s). BREAST DENSITY: C - [...] is recommended in 1 year. Mammo Location: [facility], [address] [place] [address], [address], . -------- FINAL REPORT -------- Dictated By: Deanna Hernandez Dictated Date: 07/26/2024 13:47 ET Assigned Physician: Deanna Hernandez Reviewed and Electronically Signed By: Deanna Hernandez Signed Date: 07/26/2024 13:51 ET Workstation ID: [id number] Transcribed By: Self Edit Transcribed Date: 07/26/2024 13:47 ET us Nneka Paredes MD IMG BI PROCEDURES Final Res ult * Pap smear (03/13/2022) 03/13/2022 Narrative HISTORICAL TESTING LAB RESULTING AGENCY - 03/20/2022 2:16 PM EDT [id number] THINPREP PAP, IMAGED: NEGATIVE FOR SQUAMOUS INTRAEPITHELIAL LESION AND MALIGNANCY . EBONY YOON(ASCP) (CASE ELECTRONICALLY SIGNED 03 20 2022) RESULT OF APTIMA HIGH RISK HPV ASSAY: HIGH RISK HPV: NEGATIVE (SEROTYPES 16,18,31,33,35,39,45,51,52,56,58,59,66,68) COMPLETED ON 2022-03-17 ADEQUACY: SATISFACTORY ENDOCERVICAL/TRANSFORMATION ZONE COMPONENT ABSENT. SOURCE: THINPREP PAP HPV ANY DX: REFLEX 16 AND 18, CERVICAL, IMAGED CLINICAL INFORMATION: HPV ANY DIAGNOSIS. HORMONES, PAP HX POSITIVE HYST 2007, [PARTIAL HYSTERECTOMY] [Z12.4] us Veronica Lowry DO LAB CYTOLOGY ORDERABLES Final Result HISTORICAL TESTING LAB RESULTING AGENCY from Last 3 Months or Most Recently Relevant to Health Maintenance Insurance [employer] [facility] Care Teams Tailings Dam Pumper Relationship Specialty Start Date End Date Nneka Paredes MD PCP - General Internal Medicine 07/26/24
== END 2025-05-04 15:33 | disposition home or self-care (01) ==
LOC: HO.HMCC 09:14
PROVIDERS: PCP Internal Medicine; Visit Provider Internal Medicine
DX: Z63.4 Disappearance and death of family member (principal)

== ENCOUNTER → 2025-05-04 09:13 | Outpatient (BNVA) | payer OTHER, SELFPAY | PROVIDERS: PCP Internal Medicine; Visit Provider Internal Medicine | DX: F32.A Depression, unspecified (principal); Z63.4 Disappearance and death of family member | CPT/HCPCS: 96127 ==

== ENCOUNTER 2025-05-10 07:56 | Outpatient (AMB) | payer OTHER, SELFPAY ==
--- OUTSIDE RECORDS SUMMARY | 2025-05-10 08:00 | XMS_ITS | Clinical Summary ---
Author Organization [facility] [address] [place] [address] [place] [phone] Phone Care Team Providers Care Elevator Repairer Name Role Phone Nneka Paredes MD Primary [...] is recommended in 1 year. Mammo Location: [facility], [address] [place] [address], [address], . -------- FINAL REPORT -------- Dictated By: Deanna Hernandez Dictated Date: 07/26/2024 13:47 ET Assigned Physician: Deanna Hernandez Reviewed and Electronically Signed By: Deanna Hernandez Signed Date: 07/26/2024 13:51 ET Workstation ID: [id number] Transcribed By: Self Edit Transcribed Date: 07/26/2024 [...] is recommended in 1 year. Mammo Location: [facility], [address] [place] [address], [address], . -------- FINAL REPORT -------- Dictated By: Deanna Hernandez Dictated Date: 07/26/2024 13:47 ET Assigned Physician: Deanna Hernandez Reviewed and Electronically Signed By: Deanna Hernandez Signed Date: 07/26/2024 13:51 ET Workstation ID: [id number] Transcribed By: Self Edit Transcribed Date: 07/26/2024 13:47 ET us Nneka Paredes MD IMG BI PROCEDURES Final Res ult * Pap smear (03/13/2022) 03/13/2022 Narrative HISTORICAL TESTING LAB RESULTING AGENCY - 03/20/2022 2:16 PM EDT [id number] THINPREP PAP, IMAGED: NEGATIVE FOR SQUAMOUS INTRAEPITHELIAL [...] to Health Maintenance Insurance [employer] [facility] Care Teams Elevator Repairer Relationship Specialty Start Date End Date Nneka Paredes MD PCP - General Internal Medicine 07/26/24
[2025-05-10 08:01] VITALS: BP 100/50; PULSE 104; O2SAT 98; BMI 25.4
--- NOTE | 2025-05-10 08:01 | MHC.OFFVIS ---
Vital Signs 05/10/25 08:01 Height 5 ft 3 in Weight 143 lb 8.335 oz BMI 25.4 BP 100/50 L Blood Pressure Location Lt brachial Position Sitting Pulse 104 H Pulse Source Pulse Oximeter Pulse Oximetry (%) 98 Oxygen Delivery Method Room Air Intake Visit Reasons: 3 months Intake Note: Patient presents today for RA follow up. Right shoulder pain for the past 6 weeks.Would like to have an injections. Accompanied by: Self / Same As Patient Allergies Penicillins Allergy (Mild, Verified 05/04/25 10:24) Rash HPI HPI 3 months: Details: She is grieving the loss of her mother (10/2024). She recently started fluoxetine. She uses meloxicam when she wakes up swelling in hands. She has not used it in over a year. MS minutes. Back on SSZ. No new joint swelling. Seeing pain in her right upper back for the last 6 weeks. Exacerbated with cold from her found when she sleeps. She is using a towel on that side to help her go to sleep. When pain is where she gets a massage from her and takes gabapentin with relief. She does not use gabapentin until the pain is intense. [facility] Medical History Bereavement without complication Hx of cervical cancer Hx of adenomatous polyp of colon Malignant glomus tumor Cervical carcinoma Colonic polyp Surgical History History of partial hysterectomy Family History Mother Osteoporosis Breast cancer Cirrhosis Other Brainstem stroke syndrome Social History Housing: House Patient Tobacco Use Status: Former Tobacco user e-Cigarette/Vaping Use: Never Used service: No Current occupational status: employed Cognitive needs: No Hearing needs: No Vision needs: Yes Physical Exam Vital Signs: Last Vital Signs Pulse 104 H 05/10/25 08:01 BP 100/50 L 05/10/25 08:01 Pulse Ox 98 05/10/25 08:01 Oxygen Delivery Method Room Air 05/10/25 08:01 BMI result Body Mass Index 25.4 Const Other: General: Comfortable CVS: RRR Respiratory: clear to auscultation bilaterally. Good respiratory effort Skin: No lesions seen MSK: No MTP tenderness on left foot. No heel tenderness. No synovitis present of any joints. Normal range of motion of upper extremity and lower extremity. Tender to palpate right trapezius. Assessment & Plan Assessment & Plan (1) Rheumatoid arthritis: Comment: In remission on sulfasalazine. History seropositivity with positive rheumatoid factor 46 and anti CCP positive greater than 250. Previously treated with methotrexate 07/12/2024 to 10/12/2025 discontinued due to transaminitis. She has been on sulfasalazine from 10/12/2015 to present. There was a time when she discontinued sulfasalazine due to fear of developing liver cirrhosis when her ALT increased 2024. History of cervical cancer. Code(s): M06.9 - Rheumatoid arthritis, unspecified Category: Medical Qualifiers: Rheumatoid arthritis location: unspecified site Rheumatoid factor presence: with rheumatoid factor Qualified Code(s): M05.9 - Rheumatoid arthritis with rheumatoid factor, unspecified Plan: Labs for drug monitoring on high-risk medication ordered Continue sulfasalazine 500 mg twice a day Continue curcumin capsule daily Return to clinic in 3 months (2) Other nursing home (current) drug therapy: Code(s): Z79.899 - Other nursing home (current) drug therapy Category: Medical Plan: See above (3) Osteopenia: Comment: On bone density 02/2015 with lowest T-score -1.1. She has previously been treated with alendronate from 03/11/2015 to 03/11/2017. Recent bone density 09/27/2024 reveals lowest T-score -2.0 lumbar spine, T-score-1.1 left femoral neck, T-score 0.1 total left hip. Bone density has worsened since 2014. Vitamin-D level sufficient 01/2025. Code(s): M85.80 - Other specified disorders of bone density and structure, unspecified site Category: Medical Qualifiers: Osteopenia location: unspecified Qualified Code(s): M85.80 - Other specified disorders of bone density and structure, unspecified site Plan: She will continue to take calcium 600 mg daily and vitamin-D supplement daily (combination with fish oil supplement). Information on calcium rich food given to patient. Bone density due September 2026 Return to clinic in 3 months (4) Transaminitis: Code(s): R74.01 - Elevation of levels of liver transaminase levels Category: Medical Plan: Resolved January 2025 labs (5) Strain of right trapezius muscle: Comment: Chronic. Discussed conservative management. Code(s): S46.811A - Strain of other muscles, fascia and tendons at shoulder and upper arm level, right arm, initial encounter Category: Medical Qualifiers: Encounter type: initial encounter Qualified Code(s): S46.811A - Strain of other muscles, fascia and tendons at shoulder and upper arm level, right arm, initial encounter Plan: Apply heat to back Massage area Use TENs unit If pain does not improve in 2 weeks, she will call office for PT Return to clinic in 3 months Plan . Orders: Orders Alanine Aminotransferase Today Z79.899 - Other long term care pharmacist (current) drug therapy Aspartate Amino Transferase Today Z79.899 - Other nursing home (current) drug therapy Complete Blood Count Auto Diff Today Z79.899 - Other long term care pharmacist (current) drug therapy Creatinine Today Z79.899 - Other nursing home (current) drug therapy C Reactive Protein Today Z79.899 - Other nursing home (current) drug therapy Erythrocyte Sedimentation Rate Today Z79.899 - Other long term care pharmacist (current) drug therapy Coding Level of Care Code Est Pt Level 4 (73791) Complex EM visit Add On G2211 Diagnoses Rheumatoid arthritis with positive rheumatoid factor, involving unspecified site M05.9 Rheumatoid arthritis location: unspecified site Rheumatoid factor presence: with rheumatoid factor Other nursing home (current) drug therapy Z79.899 Osteopenia, unspecified location M85.80 Osteopenia location: unspecified Transaminitis R74.01 Strain of right trapezius muscle, initial encounter S46.811A Encounter type: initial encounter
== END 2025-05-10 08:27 | disposition home or self-care (01) ==
LOC: HO.RHES 07:57
PROVIDERS: PCP Internal Medicine; Visit Provider Internal Medicine Rheumatology
DX: M05.9 Rheumatoid arthritis with rheumatoid factor, unspecified (principal); Z79.899 Other long term (current) drug therapy; M85.80 Other specified disorders of bone density and structure, unspecified site; R74.01 Elevation of levels of liver transaminase levels; S46.811A Strain of other muscles, fascia and tendons at shoulder and upper arm level, right arm, initial encounter
CPT/HCPCS: 99214

== ENCOUNTER 2025-05-11 08:36 | Outpatient (REF) | payer OTHER, SELFPAY ==
--- OUTSIDE RECORDS SUMMARY | 2025-05-11 09:12 | XMS_ITS | Clinical Summary ---
Author Organization [facility] [address] [place] [address] [place] [phone] Phone Care Team Providers Care Bdc Manager Name Role Phone Nneka Paredes MD Primary [...] is recommended in 1 year. Mammo Location: [facility], [address] [place] [address], [address], . -------- FINAL REPORT -------- Dictated By: Deanna Hernandez Dictated Date: 07/26/2024 13:47 ET Assigned Physician: Deanna Hernandez Reviewed and Electronically Signed By: Deanna Hernandez Signed Date: 07/26/2024 13:51 ET Workstation ID: [id number] Transcribed By: Self Edit Transcribed Date: 07/26/2024 [...] is recommended in 1 year. Mammo Location: [facility], [address] [place] [address], [address], . -------- FINAL REPORT -------- Dictated By: Deanna Hernandez Dictated Date: 07/26/2024 13:47 ET Assigned Physician: Deanna Hernandez Reviewed and Electronically Signed By: Deanna Hernandez Signed Date: 07/26/2024 13:51 ET Workstation ID: [id number] Transcribed By: Self Edit Transcribed Date: 07/26/2024 13:47 ET us Nneka Paredes MD IMG BI PROCEDURES Final Res ult * Pap smear (03/13/2022) 03/13/2022 Narrative HISTORICAL TESTING LAB RESULTING AGENCY - 03/20/2022 2:16 PM EDT [id number] THINPREP PAP, IMAGED: NEGATIVE FOR SQUAMOUS INTRAEPITHELIAL [...] to Health Maintenance Insurance [employer] [facility] Care Teams Bdc Manager Relationship Specialty Start Date End Date Nneka Paredes MD PCP - General Internal Medicine 07/26/24
[2025-05-11 13:39] LABS: MANUAL DIFF FLAG NO
[2025-05-11 13:48] LABS: Hematocrit 40.2 % (37.0-47.0); Hemoglobin 13.2 g/dl (12.0-16.0); Imm Gran Abs Auto 0.02 X10*3/uL (0.00-0.03); Imm Gran Pct Auto 0.4 % (0.0-0.4); Lymphocytes Absolute Auto 1.0 X10*3/uL (1.2-4.9); Mean Corpuscular HGB Conc 32.8 g/dl (31.0-35.0); Mean Corpuscular Hemoglobin 29.9 pg (27.0-33.0); Mean Corpuscular Volume 91.0 fL (80.0-98.0); NRBC Abs Auto 0.000 X10*3/uL (0.0-0.012); NRBC Pct Auto 0.0 /100WBC (0.0-0.2); Platelet Count 173 X10*3/uL (160-400); Red Blood Count 4.42 X10*6/uL (4.20-5.50); White Blood Count 5.5 X10*3/uL (4.8-10.8)
[2025-05-11 14:07] LABS: Alanine Aminotransferase 42 U/L (0-31); Aspartate Amino Transferase 32 U/L (5-31); Estimated Glomerular Filt Rate > 60
== END 2025-05-11 08:37 | disposition home or self-care (01) ==
LOC: HO.HKASLDS 08:36
PROVIDERS: Visit Provider Internal Medicine Rheumatology
DX: Z79.899 Other long term (current) drug therapy (principal)
CPT/HCPCS: 36415; 82565; 84450; 84460; 85025; 85652; 86140

== ENCOUNTER 2025-06-13 10:46 | Outpatient (AMB) | payer OTHER, SELFPAY ==
--- NOTE | 2025-06-13 11:42 | MHC.PC.OV ---
Vital Signs 06/13/25 11:48 Height 5 ft 3 in Weight 142 lb BMI 25.2 BP 102/70 Blood Pressure Location Lt brachial Position Sitting Respiration 16 Pulse 81 Pulse Source Pulse Oximeter Temp 98.3 F Temp Source Oral Pulse Oximetry (%) 97 Oxygen Delivery Method Room Air Intake Visit Reasons: Follow-up depression Intake Note: Pt is here today for her follow-up on her depression Allergies Penicillins Allergy (Mild, Verified 06/13/25 12:11) Rash Medication List - Last Reconciled 06/13/25 by Nneka Paredes MD bisacodyl (Dulcolax (bisacodyl)) 10 mg (2 x 5 mg) PO BEDTIME calcium carbonate 600 mg PO DAILY [CVS Vitamin 3 PO] cyclobenzaprine 5 mg PO BEDTIME PRN docusate sodium 100 mg PO DAILY fluoxetine 10 mg PO DAILY gabapentin 300 mg PO DAILY PRN magnesium aspart,citrate,oxide mg PO meloxicam 15 mg PO DAILY cw-[id number]-fish oil-vit D3 300-1,000-1,000 mg-mg-unit caps PO polyethylene glycol 3350 (Miralax) 238 grams PO ONCE riboflavin (vitamin B2) 400 mg PO DAILY turmeric root extract (Curcuplex-95) 500 mg PO DAILY vitamin E-aloe vera ea topical Tobacco use date assessed: 06/13/25 Dental Screening Dental Screen Date: 06/13/25 Did you have a dental visit in the last 12 months?: Yes Did you have a dental problem in the last 6 months where you did not have access to dental care?: No Was dental information given to patient?: Patient has dentist HPI Follow-up depression HPI Details 54-year-old lady here today for follow-up on her depression. She was started on fluoxetine 10 mg taken once a day in the morning, which she states has been helping control her depression. Patient reports some low mood towards the end of the day. Denies any loss of appetite, loss of libido, no lightheadedness with taking the medication. Declined seeing a therapist [facility] Medical History (Updated 06/13/25 @ 12:15 by Nneka Paredes MD) Depression with anxiety Hx of cervical cancer Hx of adenomatous polyp of colon Malignant glomus tumor Cervical carcinoma Colonic polyp Surgical History History of partial hysterectomy Family History Mother Osteoporosis Breast cancer Cirrhosis Other Brainstem stroke syndrome Social History Housing: House Patient Tobacco Use Status: Former Tobacco user e-Cigarette/Vaping Use: Never Used service: No Current occupational status: employed Cognitive needs: No Hearing needs: No Vision needs: Yes Questionnaire PHQ-9 Over the last 2 weeks, how often have you been bothered by any of the following problems? 1. Little interest or pleasure in doing things: not at all 2. Feeling down, depressed, or hopeless: not at all 3. Trouble falling or staying asleep, or sleeping too much: several days 4. Feeling tired or having little energy: not at all 5. Poor appetite or overeating: several days 6. Feeling bad about yourself - or that you are a failure or have let yourself or your family down: not at all 7. Trouble concentrating on things, such as reading the newspaper or watching television: not at all 8. Moving or speaking so slowly that other people could have noticed. Or the opposite - being so fidgety or restless that you have been moving around a lot more than usual: not at all 9. Thoughts that you would be better off or of hurting yourself in some way: not at all Total score: 2 Depression Screening Interpretation: Positive (Controlled on present treatment with fluoxetine 10 mg daily) Depression Screening Follow-up: Existing condition, In treatment and Follow-up Visit Requested Depression Screening Done: Yes 27126 - PHQ-9 Billing: Yes Source: Developed by Drs. Brandon Turner, Leia Richardson, Tarun Barbosa and colleagues, with an educational bryant from [employer]. Thrive Questionnaire Date Thrive assessed: 08/24/24 I am a: Patient What is your living situation today?: I have a steady place to live Within the past 12 months, did the food you bought not last and you didn't have the money to get more?: Never true Within the past 12 months, did you worry whether your food would run out before you got money to buy more?: Never true Do you have trouble paying for medicines?: No Do you have trouble getting transportation to medical appointments?: No Do you have trouble paying your heating and electricity bill?: No Do you have trouble taking care of your child, family member or friend?: No Do you have trouble with day-to-day activities such as bathing, preparing meals, shopping, managing finances, etc.?: No Are you currently unemployed and looking for a job?: No Are you interested in more education?: No Please select the resources that you would like help with: None Currently or been in a relationship where the following occur: No concerns reported THRIVE Score: 0 AUDIT C Alcohol Use Questionnaire (AUDIT-C) 1. How often do you have a drink containing alcohol?: Never Total Score: 0 LISETTE-7 AMB Questionnaire LISETTE-7 Date LISETTE - 7 assessed: 06/13/25 Feeling nervous, anxious, or on edge: 0 = Not at all Not being able to stop or control worryin = Not at all Worrying too much about different things: 0 = Not at all Trouble relaxin = Not at all Being so restless that it is hard to sit still: 0 = Not at all Becoming easily annoyed or irritable: 0 = Not at all Feeling afraid as if something awful might happen: 0 = Not at all Total LISETTE-7 score (0-4 normal; 5-9 mild; 10-14 moderate; 15-21 severe): 0 Source: Developed by Drs. Brandon Turner, Leia Richardson, Tarun Barbosa and colleagues, with an educational bryant from [employer]. LISETTE-7 Assessment Billing LISETTE-7 Assessment Tool: LISETTE-7 Assessment 45544 Review of Systems Const All systems reviewed & are unremarkable except as noted in HPI and below Physical exam (Primary Care) Vital Signs: Last Vital Signs Temp 98.3 F 06/13/25 11:48 Pulse 81 06/13/25 11:48 Resp 16 06/13/25 11:48 BP 102/70 06/13/25 11:48 Pulse Ox 97 06/13/25 11:48 Oxygen Delivery Method Room Air 06/13/25 11:48 BMI result Body Mass Index 25.2 Tobacco/Smoking Status: Tobacco use Status Tobacco use date assessed 06/13/25 06/13/25 11:54 Patient Tobacco Use Status Former Tobacco user 06/13/25 11:43 e-Cigarette/Vaping Use Never Used 06/13/25 11:43 PHQ-9: PHQ-9 Score PHQ-9: Total score 12 06/13/25 12:03 Depression Screening Interpretation: Positive (Controlled on present treatment with fluoxetine 10 mg daily) Depression Screening Follow-up: Existing condition, In treatment and Follow-up Visit Requested Thrive Assessment: Date of Thrive Assessment Date Thrive assessed 08/24/24 06/13/25 11:43 Currently or been in a relationship where the following occur: No concerns reported Advance Care Planning discussion: Completed/Scanned Date of discussion: 08/24/24 Who was present: patient Forms completed: Health Care Proxy Time spent: 16-45 minutes Actual minutes spent: 2 Const General: no acute distress and alert Orientation/consciousness: patient oriented x3 Eyes General: appearance normal, both eyes and all related structures Conjunctivae: conjunctivae normal Sclerae: sclerae normal Pupils: Equal, round and reactive pupils present EOM: EOMs intact bilaterally Neck Neck: Yes full ROM, Yes no lymphadenopathy and Yes supple Thyroid: Thyroid normal Resp Auscultation: clear to auscultation bilaterally Cardio Rate: regular rate Rhythm: regular rhythm Heart sounds: S1 normal heart sound present and S2 normal heart sound present Neuro General: patient oriented x3, gait normal, moves all extremities, Normal light touch and pain sensation, no focal motor deficits and CN's II-XI intact bilaterally Cranial nerves: Yes Equal, round and reactive pupils present Cognition (Neuro): normal cognition Gait exam (Neuro): Normal gait present Motor exam (neuro): 5/5 motor strength present throughout Psych Appearance: grossly normal and well kempt Mental Status: mental status grossly normal Speech and movement: Normal speech and movement present Affect: normal affect Results Reviewed Results Reviewed: Coding Level of Care Code Est Pt Level 4 (31456) Diagnoses Depression with anxiety F41.8 Additional Codes Vital Signs *Quality* - Advance Care Planning discussion: Completed/Scanned ([id number]) Vital Signs *Quality* - Time spent: 16-45 minutes ([id number]) PHQ-9 - 37468 - PHQ-9 Billing: Yes ([id number]) LISETTE-7 Assessment Billing - LISETTE-7 Assessment Tool: LISETTE-7 Assessment 06148 ([id number]) Assessment & Plan Assessment & Plan (1) Depression with anxiety: Code(s): F41.8 - Other specified anxiety disorders Category: Medical Plan: Has been feeling better, symptoms controlled with the fluoxetine takes 10 mg daily in the morning. Will continue with present dose, prescription sent for 90 days with refills, will see her back for follow-up in October 2025 Medications: Refilled fluoxetine 10 mg PO DAILY 90 caps 1RF
[2025-06-13 11:48] VITALS: BP 102/70; PULSE 81; RESP 16; TEMP 36.8; O2SAT 97; BMI 25.2
--- OUTSIDE RECORDS SUMMARY | 2025-06-13 13:55 | XMS_ITS | Clinical Summary ---
Author Organization [facility] [address] [place] [address] [place] [phone] Phone Care Team Providers Care Biological Technician Name Role Phone Nneka Paredes MD Primary [...] Health Maintenance Due Date Last Done Comments Colorectal Cancer Screening: Colonoscopy 1970 Hepatitis A Vaccines (1 of 2 - Risk 2-dose series) 1989 RSV Immunization Adult Patients (1 - Risk 50-74 years 1-dose series) 2020 Pneumococcal Vaccine: 50+ Years (3 of 3 - PCV20 or PCV21) 11/26/2020 11/27/2015, 2014 HIV Screening 08/01/2022 Hepatitis C Screening 08/01/2022 Social Influencers of Health Screening 08/01/2022 DTaP,Tdap,and Td Vaccines (7 - Td or Tdap) 02/20/2024 02/19/2014, 06/08/1986, 08/09/1982, Additional history exists Depression Screening 08/23/2024 Cervical Cancer Screening: Pap Smear 03/13/2025 03/13/2022, 05/04/2019 COVID-19 Vaccine ( season) 2025 08/31/2021, 01/14/2021, 12/17/2020 Influenza Vaccine (#1) 2025 , 06/09/2023, 06/26/2022, Additional history exists Breast Cancer [...] is recommended in 1 year. Mammo Location: [facility], [address] [place] [address], [id number], . -------- FINAL REPORT -------- Dictated By: Deanna Hernandez Dictated Date: 07/26/2024 13:47 ET Assigned Physician: Deanna Hernandez Reviewed and Electronically Signed By: Deanna Hernandez Signed Date: 07/26/2024 13:51 ET Workstation ID: [id number] Transcribed By: Self Edit Transcribed Date: 07/26/2024 [...] is recommended in 1 year. Mammo Location: [facility], [address] [place] [address], [phone], . -------- FINAL REPORT -------- Dictated By: Deanna Hernandez Dictated Date: 07/26/2024 13:47 ET Assigned Physician: Deanna Hernandez Reviewed and Electronically Signed By: Deanna Hernandez Signed Date: 07/26/2024 13:51 ET Workstation ID: [id number] Transcribed By: Self Edit Transcribed Date: 07/26/2024 13:47 ET us Nneka Paredes MD IMG BI PROCEDURES Final Res ult * Pap smear (03/13/2022) 03/13/2022 Narrative HISTORICAL TESTING LAB RESULTING AGENCY - 03/20/2022 2:16 PM EDT [id number] THINPREP PAP, IMAGED: NEGATIVE FOR SQUAMOUS INTRAEPITHELIAL LESION AND MALIGNANCY . MANDI HAMILTON , EBONY(ASCP) (CASE ELECTRONICALLY SIGNED 03 20 2022) RESULT OF APTIMA HIGH RISK HPV ASSAY: HIGH RISK HPV: NEGATIVE (SEROTYPES 16,18,31,33,35,39,45,51,52,56,58,59,66,68) COMPLETED ON 2022-03-17 ADEQUACY: SATISFACTORY ENDOCERVICAL/TRANSFORMATION ZONE COMPONENT ABSENT. SOURCE: THINPREP PAP HPV ANY DX: REFLEX 16 AND 18, CERVICAL, IMAGED CLINICAL INFORMATION: HPV ANY DIAGNOSIS. HORMONES, PAP HX POSITIVE HYST 2008, [PARTIAL HYSTERECTOMY] [Z12.4] us Veronica Lowry DO LAB CYTOLOGY ORDERABLES Final Result HISTORICAL TESTING LAB RESULTING AGENCY from Last 3 Months or Most Recently Relevant to Health Maintenance Insurance [employer] [facility] Care Teams Biological Technician Relationship Specialty Start Date End Date Nneka Paredes MD PCP - General Internal Medicine 07/26/24
== END 2025-06-13 12:09 | disposition home or self-care (01) ==
LOC: HO.HMCC 10:47
PROVIDERS: PCP Internal Medicine; Visit Provider Internal Medicine
DX: F41.8 Other specified anxiety disorders (principal); Z00.00 Encounter for general adult medical examination without abnormal findings

== ENCOUNTER → 2025-06-13 10:46 | Outpatient (BNVA) | payer OTHER, SELFPAY | PROVIDERS: PCP Internal Medicine; Visit Provider Internal Medicine | DX: F41.8 Other specified anxiety disorders (principal) | CPT/HCPCS: 96127 ==

== ENCOUNTER 2025-08-08 13:17 | Outpatient (REF) | payer OTHER, SELFPAY | END 2025-08-08 13:18 | disposition home or self-care (01) | LOC: HO.LNP 13:17 | PROVIDERS: PCP Internal Medicine; Visit Provider Obstetrics & Gynecology | DX: Z01.419 Encounter for gynecological examination (general) (routine) without abnormal findings (principal); Z85.41 Personal history of malignant neoplasm of cervix uteri; Z12.31 Encounter for screening mammogram for malignant neoplasm of breast; Z11.51 Encounter for screening for human papillomavirus (HPV) | CPT/HCPCS: 87626; 88175 ==

== ENCOUNTER 2025-08-08 13:17 | Outpatient (AMB) | payer OTHER, SELFPAY ==
--- NOTE | 2025-08-08 13:18 | A.OFFVIS_ITS ---
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 No complaints. Last Pap/HPV was 2 years ago according to patient no records available, history of cervical cancer stage I status post radical hysterectomy 20 years ago since then normal Co testing according to the patient Last mammogram was a year ago at [facility] no records available Last colonoscopy was 5 years ago, the patient has you know and is in the process of scheduling her appointment with GI [facility] Medical History Depression with anxiety Hx of cervical cancer Hx of adenomatous polyp of colon Malignant glomus tumor Cervical carcinoma Colonic polyp Surgical History History of partial hysterectomy Family History (Updated 08/08/25 @ 13:24 by Pricilla Pineda CMA) Mother Osteoporosis Breast cancer Cirrhosis Diabetes COPD (chronic obstructive pulmonary disease) Other Brainstem stroke syndrome Social History (Updated 08/08/25 @ 13:25 by Pricilla Pineda CMA) Household Members: Spouse Housing: House Alcohol intake: never Patient Tobacco Use Status: Former Tobacco user Years Smoked: 4 e-Cigarette/Vaping Use: Never Used Use of substances other than those prescribed or required for medical reasons: No service: No Current occupational status: employed Current occupation: personal injury legal assistant [employer] Sexually active: Yes Sexual orientation: Straight/Heterosexual Gender identity: Female Cognitive needs: No Hearing needs: No Vision needs: Yes Female Reproductive History Menstrual Menopause type: surgical Total pregnancies: 2 Full term: 2 Number of Living Children: 2 Date of Mammogram: 07/26/24 Date of last Bone Density Screenin09/27/24 Review of Systems Const All systems reviewed & are unremarkable except as noted in HPI and below Card Reports as per HPI and Reports no additional complaints Resp Reports as per HPI and Reports no additional complaints GI Reports as per HPI and Reports no additional complaints Reports as per HPI Physical Exam Vital Signs: Last Vital Signs BP 118/66 08/08/25 13:19 BMI result Body Mass Index 25.3 Const General: cooperative, healthy appearing and comfortable General: Yes bladder normal to palpation External Female Exam: No lesion Speculum Exam - Vagina: normal appearance of the vagina, normal vaginal discharge and not erythematous Speculum Exam - Cervix: Cervix absent Bimanual exam- vagina & uterus: bladder normal to palpation and uterus absent Bimanual Exam- Adnexa, other: Other (No masses detected) Assessment & Plan Assessment & Plan (1) Well woman exam: Comment: History of stage I cervical cancer 20 years ago status post radical hysterectomy Code(s): Z01.419 - Encounter for gynecological examination (general) (routine) without abnormal findings Category: Medical Plan: Vaginal Co testing done. Counseled the patient about the recommended dietary allowance of 1200 mg of Calcium & 600 IU of vitamin D. Mammogram ordered. The patient was referred to GI for screening colonoscopy . The patient was instructed to perform monthly self-breast exams and schedule annual exam in a year. All questions answered and the patient verbalized understanding. Orders: Orders MM tomosynthesis screening BI Today Z12.31 - Encounter for screening mammogram for malignant neoplasm of breast Coding Level of Care Code New Pt Prev Care 40-64y(56084) Diagnoses Well woman exam Z01.419
[2025-08-08 13:19] VITALS: BP 118/66; BMI 25.3
--- OUTSIDE RECORDS SUMMARY | 2025-08-08 17:27 | XMS_ITS | Clinical Summary ---
Author Organization [facility] [address] [place] [address] [place] [phone] Phone Care Team Providers Care Activity Coordinator Name Role Phone Nneka Paredes MD Primary [...] is recommended in 1 year. Mammo Location: [facility], [address] [place] [address], [address], . -------- FINAL REPORT -------- Dictated By: Deanna Hernandez Dictated Date: 07/26/2024 13:47 ET Assigned Physician: Deanna Hernandez Reviewed and Electronically Signed By: Deanna Hernandez Signed Date: 07/26/2024 13:51 ET Workstation ID: [id number] Transcribed By: Self Edit Transcribed Date: 07/26/2024 [...] is recommended in 1 year. Mammo Location: [facility], [address] [place] [address], [id number], . -------- FINAL REPORT -------- Dictated By: Deanna Hernandez Dictated Date: 07/26/2024 13:47 ET Assigned Physician: Deanna Hernandez Reviewed and Electronically Signed By: Deanna Hernandez Signed Date: 07/26/2024 13:51 ET Workstation ID: [id number] Transcribed By: Self Edit Transcribed Date: 07/26/2024 13:47 ET us Nneka Paredes MD IMG BI PROCEDURES Final Res ult * Pap smear (03/13/2022) 03/13/2022 Narrative HISTORICAL TESTING LAB RESULTING AGENCY - 03/20/2022 2:16 PM EDT [id number] THINPREP PAP, IMAGED: NEGATIVE FOR SQUAMOUS INTRAEPITHELIAL [...] to Health Maintenance Insurance [employer] [facility] Care Teams Activity Coordinator Relationship Specialty Start Date End Date Nneka Paredes MD PCP - General Internal Medicine 07/26/24
== END 2025-08-08 13:47 | disposition home or self-care (01) ==
LOC: HO.HWS 13:18
PROVIDERS: PCP Internal Medicine; Visit Provider Obstetrics & Gynecology
DX: Z01.419 Encounter for gynecological examination (general) (routine) without abnormal findings (principal)
CPT/HCPCS: 99386; 99459